=== PATIENT | male | born 1965 | race Caucasian/White ===

== ENCOUNTER 2018-05-11 03:32 | Emergency (ER) | payer OTHER, SELFPAY ==
[~2018-05-11] VITALS: Ht 185.4 cm; Wt 143.3 kg
[~2018-05-11 03:32] MED LIST: ALBU90I INH; ASPI81EC PO; ATOR40TA PO; Amlodipine Besy10 MG PO; BUME1 PO; CEPH500 PO; CLON.1 PO; CLOP75 PO; FLUO20 PO; FURO20 PO; HYDCHL25 PO; HYDMOR2 PO; HYDR10 PO; INSUASPI SC; INSULANI SC; INSULANPEN; LISI10 PO; LISI20 PO; LISI5 PO; METO50 PO; OXYC10ER PO; PARI1 PO; POTCHL10ER PO; PRED10 PO; Prednisone20 MG PO; QUET100 PO; QUET200 PO; SIMV20 PO; SIMV40 PO; SIMV5 PO; TIZANIDINE HCL4 MG PO; ZOLP12.5 PO; [UNRECOGNIZED DRUG - OTHER] PO
[2018-05-11 06:15] LABS: Source, Urine Clean Catch
[2018-05-11 06:21] LABS: Bilirubin, Urine Neg (Neg); Blood, Urine Neg (Neg); Glucose Qualitative, Urine 4+ (Neg); Ketones, Urine Neg (Neg); Leukocyte Esterase, Urine Neg (Neg); Nitrite, Urine Neg (Neg); Protein, Urine 2+ (Neg); Urobilinogen, Urine NORM (Normal)
[2018-05-11 06:28] LABS: BASOPHILS ABSOLUTE AUTO 0.08 K/mm3 (0.00-0.23); BASOPHILS PERCENT AUTO 1 % (0-2); EOSINOPHILS ABSOLUTE AUTO 0.13 K/mm3 (0.00-0.68); EOSINOPHILS PERCENT AUTO 1 % (0-6); Hematocrit 46.9 % (37.0-53.0); Hemoglobin 16.4 g/dL (13.5-17.5); IMMATURE GRAN ABSOLUTE AUTO 0.06 K/mm3 (0.00-0.10); IMMATURE GRAN PERCENT AUTO 1 % (0-1); LYMPHOCYTES ABSOLUTE AUTO 2.23 K/mm3 (0.84-5.20); LYMPHOCYTES PERCENT AUTO 19 % (21-46); MONOCYTES ABSOLUTE AUTO 0.71 K/mm3 (0.16-1.47); MONOCYTES PERCENT AUTO 6 % (4-13); Mean Corpuscular HGB 28.8 pg (26.0-34.0); Mean Corpuscular Volume 82 fL (80-100); Mean Platelet Volume 10.2 fL (9.1-12.4); NEUTROPHILS ABSOLUTE AUTO 8.68 K/mm3 (1.96-9.15); NEUTROPHILS PERCENT AUTO 73 % (41-73); Platelet Count 298 K/mm3 (150-400); RDW Coefficient Variation 12.1 % (11.7-14.2); RDW Standard Deviation 36.4 fL (35.1-46.3); Red Blood Cell Count 5.69 M/mm3 (4.30-5.90); White Blood Cell Count 11.89 K/mm3 (4.00-11.30)
[2018-05-11 06:31] LABS: Appearance, Urine Clear (Clear); Color, Urine Yellow (P-Yellow)
[2018-05-11 06:33] LABS: Bacteria Not Seen /hpf; Red Blood Cells, Urine Not Seen /hpf (0-2); Squamous Epithelial Cells Few /hpf (Few); White Blood Cells, Urine 0-2 /hpf (0-5)
[2018-05-11 06:46] LABS: Alanine Aminotransfer (ALT/SGP 22 U/L (12-78); Albumin, Blood 4.3 g/dL (3.4-5.0); Albumin/Globulin Ratio 1.2 (0.8-1.8); Alk Phos 110 U/L (50-136); Anion Gap 10 mmol/L (6-16); Aspartate Aminotrans (AST/SGOT 15 U/L (12-37); Blood Urea Nitrogen 17 mg/dL (8-24); Bun/Creatinine Ratio 13.2 (12.0-20.0); CO2, Blood 26 mmol/L (21-32); Calcium, Blood 9.2 mg/dL (8.5-10.1); Chloride, Blood 103 mmol/L (98-108); Creatinine, Blood 1.29 mg/dL (0.60-1.20); Globulin, Blood 3.6 g/dL (2.2-4.0); Glomerular Filtration Rate >60 (60-); Glucose, Blood 229 mg/dL (70-99); Potassium, Blood 4.2 mmol/L (3.5-5.5); Sodium, Blood 139 mmol/L (136-145); Total Protein, Blood 7.9 g/dL (6.4-8.2)
== END 2018-05-11 09:30 | disposition home or self-care (01) ==
LOC: ER 03:32
PROVIDERS: Emergency Medicine
DX: R44.1 Visual hallucinations (principal); T50.905A Adverse effect of unspecified drugs, medicaments and biological substances, initial encounter; R10.9 Unspecified abdominal pain
CPT/HCPCS: 70450; 80053; 81001; 85025; 93005; 93010; 96361; 96374; 99284; J2405; J7120

== ENCOUNTER 2018-08-11 16:10 | Emergency (ER) | payer OTHER ==
[~2018-08-11] VITALS: Ht 185.4 cm; Wt 122.5 kg
[2018-08-11] MEDS ORDERED: OXYC10ER PO (16:28)
[2018-08-11] MEDS ORDERED: ONDA8 PO (16:28)
[2018-08-11 18:55] LABS: BASOPHILS ABSOLUTE AUTO 0.04 K/mm3 (0.00-0.23); BASOPHILS PERCENT AUTO 0 % (0-2); EOSINOPHILS ABSOLUTE AUTO 0.01 K/mm3 (0.00-0.68); EOSINOPHILS PERCENT AUTO 0 % (0-6); Hematocrit 46.4 % (37.0-53.0); Hemoglobin 16.2 g/dL (13.5-17.5); IMMATURE GRAN ABSOLUTE AUTO 0.12 K/mm3 (0.00-0.10); IMMATURE GRAN PERCENT AUTO 1 % (0-1); LYMPHOCYTES ABSOLUTE AUTO 1.99 K/mm3 (0.84-5.20); LYMPHOCYTES PERCENT AUTO 18 % (21-46); MONOCYTES ABSOLUTE AUTO 0.91 K/mm3 (0.16-1.47); MONOCYTES PERCENT AUTO 8 % (4-13); Mean Corpuscular HGB Conc 34.9 g/dL (31.5-36.5); Mean Corpuscular Volume 83 fL (80-100); Mean Platelet Volume 10.7 fL (9.1-12.4); NEUTROPHILS ABSOLUTE AUTO 8.24 K/mm3 (1.96-9.15); NEUTROPHILS PERCENT AUTO 73 % (41-73); Platelet Count 351 K/mm3 (150-400); RDW Coefficient Variation 12.8 % (11.7-14.2); RDW Standard Deviation 38.3 fL (35.1-46.3); Red Blood Cell Count 5.59 M/mm3 (4.30-5.90); White Blood Cell Count 11.31 K/mm3 (4.00-11.30)
[2018-08-11 19:17] LABS: Albumin, Blood 4.6 g/dL (3.4-5.0); Albumin/Globulin Ratio 1.2 (0.8-1.8); Bilirubin, Total 0.8 mg/dL (0.1-1.0); Bun/Creatinine Ratio 11.9 (12.0-20.0); Calcium, Blood 9.4 mg/dL (8.5-10.1); Creatinine, Blood 1.43 mg/dL (0.60-1.20); Potassium, Blood 4.3 mmol/L (3.5-5.5); Total Protein, Blood 8.6 g/dL (6.4-8.2)
[2018-08-11 19:54] LABS: Source, Urine Clean Catch
[2018-08-11 20:07] LABS: Bilirubin, Urine Neg (Neg); Blood, Urine 1+ (Neg); Glucose Qualitative, Urine 4+ (Neg); Ketones, Urine 2+ (Neg); Leukocyte Esterase, Urine Neg (Neg); Nitrite, Urine Neg (Neg); Protein, Urine 3+ (Neg); Urobilinogen, Urine NORM (Normal)
[2018-08-11 20:12] LABS: Appearance, Urine Cloudy (Clear); Color, Urine Yellow (P-Yellow)
[2018-08-11 20:14] LABS: Bacteria Few /hpf; White Blood Cells, Urine 0-2 /hpf (0-5)
[2018-08-11 20:16] LABS: Red Blood Cells, Urine 0-2 /hpf (0-2); Squamous Epithelial Cells Few /hpf (Few); Transitional Epithelial Cells Few /hpf (0-Rare)
== END 2018-08-11 21:58 | disposition home or self-care (01) ==
LOC: ER 16:10
PROVIDERS: Emergency Medicine
DX: E11.65 Type 2 diabetes mellitus with hyperglycemia (principal); E86.0 Dehydration; E11.22 Type 2 diabetes mellitus with diabetic chronic kidney disease; N18.9 Chronic kidney disease, unspecified; F32.9 Major depressive disorder, single episode, unspecified; E78.5 Hyperlipidemia, unspecified; E66.01 Morbid (severe) obesity due to excess calories; F17.220 Nicotine dependence, chewing tobacco, uncomplicated; Z79.899 Other long term (current) drug therapy; Z79.4 Long term (current) use of insulin; Z79.01 Long term (current) use of anticoagulants; Z68.35 Body mass index [BMI] 35.0-35.9, adult
CPT/HCPCS: 36415; 74176; 80053; 81001; 82947; 85025; 87086; 96360; 96361; 99284-25; J1815; J7030

== ENCOUNTER 2019-03-09 21:44 | Emergency (ER) | payer OTHER ==
[~2019-03-09] VITALS: Ht 185.4 cm; Wt 137.4 kg
[~2019-03-09 21:44] MED LIST changes: +METO100 PO; +ONDA8 PO
[2019-03-09] MEDS ORDERED: ZOLP12.5 PO (22:23)
[2019-03-09] MEDS ORDERED: ALBU2.5V5 NEB (22:42)
[2019-03-09] MEDS ORDERED: BENZ100A PO (22:43)
== END 2019-03-09 23:33 | disposition home or self-care (01) ==
LOC: ER 21:44
DX: R06.00 Dyspnea, unspecified (principal); I10 Essential (primary) hypertension; E11.40 Type 2 diabetes mellitus with diabetic neuropathy, unspecified; F17.220 Nicotine dependence, chewing tobacco, uncomplicated; Z79.4 Long term (current) use of insulin; Z79.899 Other long term (current) drug therapy
CPT/HCPCS: 71046; 94640; 99283-25

== ENCOUNTER → 2020-03-15 | Outpatient (CLI) | payer OTHER ==
[~2020-03-15] MED LIST changes: +ALBU2.5V5 NEB; +BENZ100A PO
[2020-03-15 18:53] LABS: Protein, Urine Quantitative 21.4 mg/dL (0.0-11.9)
[2020-03-15 18:59] LABS: Creatinine Urine 30.8 mg/dL (27.00-270.00)
== END | disposition home or self-care (01) ==
LOC: LAB 16:35 → LAB SHORT 16:35 → LAB FUT 03-14 14:05
PROVIDERS: Internal Medicine Nephrology
DX: N18.3 Chronic kidney disease, stage 3 (moderate) (principal); D63.1 Anemia in chronic kidney disease; N40.1 Benign prostatic hyperplasia with lower urinary tract symptoms; R80.9 Proteinuria, unspecified
CPT/HCPCS: 81050; 82043; 82570; 84156

== ENCOUNTER 2020-05-12 10:31 | Emergency (ER) | payer OTHER ==
[~2020-05-12] VITALS: Ht 185.4 cm; Wt 127.0 kg
[2020-05-12] MEDS ORDERED: TOBRADEX ST EYE5 M1 LEFTEYE (13:13)
== END 2020-05-12 14:13 | disposition home or self-care (01) ==
LOC: ER 10:31
DX: H10.9 Unspecified conjunctivitis (principal); Z88.8 Allergy status to other drugs, medicaments and biological substances; Z79.899 Other long term (current) drug therapy; Z79.4 Long term (current) use of insulin; E11.40 Type 2 diabetes mellitus with diabetic neuropathy, unspecified; E78.00 Pure hypercholesterolemia, unspecified; I10 Essential (primary) hypertension; I25.2 Old myocardial infarction; F17.220 Nicotine dependence, chewing tobacco, uncomplicated
CPT/HCPCS: 70450; 99283-25

== ENCOUNTER 2020-12-23 17:35 | Observation (INO) | payer OTHER ==
[~2020-12-23] VITALS: Ht 185.4 cm; Wt 128.4 kg
[~2020-12-23 17:35] MED LIST changes: -INSUASPI SC; +NOVOLOG FL100 UNIT/3; +TOBRADEX ST EYE5 M1 LEFTEYE
[2020-12-23 18:47] LABS: BASOPHILS ABSOLUTE AUTO 0.07 K/mm3 (0.00-0.23); BASOPHILS PERCENT AUTO 1 % (0-2); EOSINOPHILS ABSOLUTE AUTO 0.13 K/mm3 (0.00-0.68); EOSINOPHILS PERCENT AUTO 1 % (0-6); Hematocrit 39.9 % (37.0-53.0); Hemoglobin 13.4 g/dL (13.5-17.5); IMMATURE GRAN ABSOLUTE AUTO 0.08 K/mm3 (0.00-0.10); IMMATURE GRAN PERCENT AUTO 1 % (0-1); LYMPHOCYTES PERCENT AUTO 17 % (21-46); MONOCYTES ABSOLUTE AUTO 1.07 K/mm3 (0.16-1.47); MONOCYTES PERCENT AUTO 11 % (4-13); Mean Corpuscular HGB 28.6 pg (26.0-34.0); Mean Corpuscular HGB Conc 33.6 g/dL (31.5-36.5); Mean Corpuscular Volume 85 fL (80-100); Mean Platelet Volume 10.9 fL (9.1-12.4); NEUTROPHILS ABSOLUTE AUTO 6.74 K/mm3 (1.96-9.15); NEUTROPHILS PERCENT AUTO 69 % (41-73); Platelet Count 242 K/mm3 (150-400); RDW Coefficient Variation 12.4 % (11.7-14.2); RDW Standard Deviation 38.2 fL (35.1-46.3); Red Blood Cell Count 4.68 M/mm3 (4.30-5.90); White Blood Cell Count 9.79 K/mm3 (4.00-11.30)
[2020-12-23 19:08] LABS: Alanine Aminotransfer (ALT/SGP 32 U/L (12-78); Albumin, Blood 3.3 g/dL (3.4-5.0); Albumin/Globulin Ratio 1.1 (0.8-1.8); Alk Phos 167 U/L (50-136); Anion Gap 6 mmol/L (6-16); Aspartate Aminotrans (AST/SGOT 19 U/L (12-37); Bilirubin, Total 0.6 mg/dL (0.1-1.0); Blood Urea Nitrogen 31 mg/dL (8-24); Bun/Creatinine Ratio 22.8 (12.0-20.0); CO2, Blood 26 mmol/L (21-32); Calcium, Blood 8.4 mg/dL (8.5-10.1); Chloride, Blood 104 mmol/L (98-108); Creatinine, Blood 1.36 mg/dL (0.60-1.20); Globulin, Blood 3.1 g/dL (2.2-4.0); Glomerular Filtration Rate 58 (60-); Glucose, Blood 295 mg/dL (70-99); Potassium, Blood 4.3 mmol/L (3.5-5.5); Sodium, Blood 136 mmol/L (136-145); Total Protein, Blood 6.4 g/dL (6.4-8.2); Troponin I <0.015 ng/mL (0.000-0.040)
[2020-12-23] MEDS ORDERED: HYDMOR4 PO (19:51)
[2020-12-23] MEDS ORDERED: QUETIAPINE FUMA50 M4 PO (19:52)
[2020-12-23] MEDS ORDERED: ATOR40TA PO (19:52)
[2020-12-23] MEDS ORDERED: CLON.1 PO (19:53)
[2020-12-23] MEDS ORDERED: LISI20 PO (19:53)
[2020-12-23] MEDS ORDERED: METO100ER PO (19:54)
[2020-12-24 06:24] LABS: BASOPHILS ABSOLUTE AUTO 0.07 K/mm3 (0.00-0.23); BASOPHILS PERCENT AUTO 1 % (0-2); EOSINOPHILS ABSOLUTE AUTO 0.21 K/mm3 (0.00-0.68); EOSINOPHILS PERCENT AUTO 3 % (0-6); Hematocrit 37.3 % (37.0-53.0); Hemoglobin 12.5 g/dL (13.5-17.5); IMMATURE GRAN ABSOLUTE AUTO 0.05 K/mm3 (0.00-0.10); IMMATURE GRAN PERCENT AUTO 1 % (0-1); LYMPHOCYTES ABSOLUTE AUTO 3.22 K/mm3 (0.84-5.20); LYMPHOCYTES PERCENT AUTO 42 % (21-46); MONOCYTES ABSOLUTE AUTO 0.91 K/mm3 (0.16-1.47); MONOCYTES PERCENT AUTO 12 % (4-13); Mean Corpuscular HGB 28.7 pg (26.0-34.0); Mean Corpuscular HGB Conc 33.5 g/dL (31.5-36.5); Mean Corpuscular Volume 86 fL (80-100); Mean Platelet Volume 11.2 fL (9.1-12.4); NEUTROPHILS ABSOLUTE AUTO 3.27 K/mm3 (1.96-9.15); NEUTROPHILS PERCENT AUTO 42 % (41-73); Platelet Count 200 K/mm3 (150-400); RDW Coefficient Variation 12.2 % (11.7-14.2); RDW Standard Deviation 38.4 fL (35.1-46.3); Red Blood Cell Count 4.36 M/mm3 (4.30-5.90); White Blood Cell Count 7.73 K/mm3 (4.00-11.30)
[2020-12-24 06:51] LABS: Anion Gap 5 mmol/L (6-16); Blood Urea Nitrogen 26 mg/dL (8-24); Bun/Creatinine Ratio 22.6 (12.0-20.0); CO2, Blood 26 mmol/L (21-32); Calcium, Blood 8.2 mg/dL (8.5-10.1); Chloride, Blood 109 mmol/L (98-108); Creatinine, Blood 1.15 mg/dL (0.60-1.20); Glomerular Filtration Rate >60 (60-); Glucose, Blood 274 mg/dL (70-99); Potassium, Blood 3.9 mmol/L (3.5-5.5); Sodium, Blood 140 mmol/L (136-145); Troponin I <0.015 ng/mL (0.000-0.040)
--- NOTE | 2020-12-24 07:36 | NUR ---
12/24/20 0500 PT SLEEPING ON AND OFF LAST NIGHT. MEDICATED FOR SLEEP AND CHRONIC "FEET" AND "LEFT SIDE OF BODY" PAIN EARLIER. VITALS STABLE THIS AM. DENIES ANY CHEST DISCOMFORT OR NAUSEA THIS SHIFT. VOIDING QS. PT REFUSED COVID TEST IN ER AND ON FLOOR. WILL PASS ON TO THE DAY SHIFT.
[2020-12-24] MEDS ORDERED: Aspir 8181 MG PO (09:49)
[2020-12-24] MEDS ORDERED: NICO2 PO (09:50)
[2020-12-24] MEDS ORDERED: NITR.4SL SL (09:51)
[2020-12-24] MEDS ORDERED: FAMO20 PO (09:51)
[2020-12-24] MEDS ORDERED: HYDCHL25 PO (09:52)
--- NOTE | 2020-12-24 09:57 | NUR ---
PATIENT REFUSED TO HAVE CHEM BG CHECKED, THUS INSULIN HELD. DR GREGORIO NOTIFIED. DR GREGORIO IS DISCHARGING PATIENT HOME AND PATIENT TO FOLLOW-UP WITH RN DISEASE MANAGEMENT ON OUTPATIENT BASIS. IV REMOVED AND TELE BOX REMOVED; RETURNED TO PCU MEDICAL LABORATORY TECHNOLOGIST.
--- NOTE | 2020-12-24 10:40 | NUR ---
DISCHARGE INSTRUCTIONS REVIEWED WITH PATIENT. ALL QUESTIONS ANSWERED. FOLLOW UP APPOINTMENTS SCHEDULED WITH PCP AND PRIVATE BRANCH EXCHANGE OPERATOR.
--- NOTE | 2020-12-24 12:14 | NUR ---
PATIENT WAS ESCORTED OUT BY BEHAVIORAL PSYCHOLOGIST IN WHEEL CHAIR AT 1200. FAMILY MEMBER PICKED UP PATIENT AT [facility].
== END 2020-12-24 12:02 | disposition home or self-care (01) ==
LOC: ER 17:35 → MEDS 20:15
PROVIDERS: Emergency Medicine; Nurse Practitioner Acute Care; ADMIT Internal Medicine
DX: I20.9 Angina pectoris, unspecified (principal); R11.2 Nausea with vomiting, unspecified; K29.70 Gastritis, unspecified, without bleeding; E78.5 Hyperlipidemia, unspecified; I25.10 Atherosclerotic heart disease of native coronary artery without angina pectoris; N17.9 Acute kidney failure, unspecified; I12.9 Hypertensive chronic kidney disease with stage 1 through stage 4 chronic kidney disease, or unspecified chronic kidney disease; E11.22 Type 2 diabetes mellitus with diabetic chronic kidney disease; N18.30 Chronic kidney disease, stage 3 unspecified; E11.65 Type 2 diabetes mellitus with hyperglycemia; G89.4 Chronic pain syndrome; J44.9 Chronic obstructive pulmonary disease, unspecified; I25.2 Old myocardial infarction; F17.220 Nicotine dependence, chewing tobacco, uncomplicated; Z86.73 Personal history of transient ischemic attack (TIA), and cerebral infarction without residual deficits; Z85.47 Personal history of malignant neoplasm of testis; Z79.02 Long term (current) use of antithrombotics/antiplatelets; Z79.4 Long term (current) use of insulin; Z79.899 Other long term (current) drug therapy
CPT/HCPCS: 36415; 71046; 80048; 80053; 83690; 84484; 85025; 93005; 93010; 96374; 96375; 96376; 99285-25; A9270; G0378; J2405; J7030

== ENCOUNTER → 2022-01-13 | Outpatient (CLI) | payer OTHER ==
[~2022-01-13] MED LIST changes: +Aspir 8181 MG PO; +FAMO20 PO; +HYDMOR4 PO; +METO100ER PO; +NICO2 PO; +NITR.4SL SL; +QUETIAPINE FUMA50 M4 PO
[2022-01-13 13:38] LABS: BASOPHILS ABSOLUTE AUTO 0.04 K/mm3 (0.00-0.23); BASOPHILS PERCENT AUTO 0 % (0-2); EOSINOPHILS ABSOLUTE AUTO 0.03 K/mm3 (0.00-0.68); EOSINOPHILS PERCENT AUTO 0 % (0-6); Hematocrit 44.3 % (37.0-53.0); Hemoglobin 15.1 g/dL (13.5-17.5); IMMATURE GRAN ABSOLUTE AUTO 0.08 K/mm3 (0.00-0.10); IMMATURE GRAN PERCENT AUTO 1 % (0-1); LYMPHOCYTES ABSOLUTE AUTO 1.35 K/mm3 (0.84-5.20); LYMPHOCYTES PERCENT AUTO 14 % (21-46); MONOCYTES PERCENT AUTO 14 % (4-13); Mean Corpuscular HGB 28.4 pg (26.0-34.0); Mean Corpuscular HGB Conc 34.1 g/dL (31.5-36.5); Mean Corpuscular Volume 83 fL (80-100); Mean Platelet Volume 11.9 fL (9.1-12.4); NEUTROPHILS ABSOLUTE AUTO 6.92 K/mm3 (1.96-9.15); NEUTROPHILS PERCENT AUTO 71 % (41-73); Platelet Count 289 K/mm3 (150-400); RDW Coefficient Variation 13.2 % (11.7-14.2); Red Blood Cell Count 5.31 M/mm3 (4.30-5.90); White Blood Cell Count 9.82 K/mm3 (4.00-11.30)
[2022-01-13 14:05] LABS: Creatinine, Blood 1.33 mg/dL (0.60-1.20); Potassium, Blood 4.1 mmol/L (3.5-5.5)
== END ==
LOC: LAB SHORT 13:34 → LAB 13:34
PROVIDERS: Family Medicine
DX: U07.1 COVID-19 (principal); J12.82 Pneumonia due to coronavirus disease 2019
CPT/HCPCS: 80048; 85025

== ENCOUNTER → 2022-05-09 | Outpatient (CLI) | payer OTHER | END | disposition home or self-care (01) | LOC: LAB SHORT 17:27 → LAB 17:27 | DX: E11.621 Type 2 diabetes mellitus with foot ulcer (principal) | CPT/HCPCS: 87070; 87205 ==

== ENCOUNTER → 2022-07-15 | Outpatient (CLI) | payer OTHER ==
[2022-07-15 12:30] LABS: Protein, Urine Quantitative 62.1 mg/dL (0.0-11.9)
== END | disposition home or self-care (01) ==
LOC: LAB SHORT 08:00 → LAB 08:00
PROVIDERS: Internal Medicine Nephrology
DX: N18.30 Chronic kidney disease, stage 3 unspecified (principal); D63.1 Anemia in chronic kidney disease; R73.09 Other abnormal glucose; N40.1 Benign prostatic hyperplasia with lower urinary tract symptoms; E29.1 Testicular hypofunction; N25.81 Secondary hyperparathyroidism of renal origin; R76.9 Abnormal immunological finding in serum, unspecified; R94.6 Abnormal results of thyroid function studies
CPT/HCPCS: 81050; 82043; 82570; 84156

== ENCOUNTER 2022-11-24 16:18 | Emergency (ER) | payer OTHER ==
[~2022-11-24] VITALS: Ht 185.4 cm; Wt 129.3 kg
[2022-11-24 17:42] LABS: BASOPHILS PERCENT AUTO 1 % (0-2); EOSINOPHILS ABSOLUTE AUTO 0.22 K/mm3 (0.00-0.68); EOSINOPHILS PERCENT AUTO 2 % (0-6); Hematocrit 47.5 % (37.0-53.0); Hemoglobin 16.4 g/dL (13.5-17.5); IMMATURE GRAN PERCENT AUTO 1 % (0-1); LYMPHOCYTES ABSOLUTE AUTO 3.06 K/mm3 (0.84-5.20); LYMPHOCYTES PERCENT AUTO 30 % (21-46); MONOCYTES ABSOLUTE AUTO 0.88 K/mm3 (0.16-1.47); MONOCYTES PERCENT AUTO 9 % (4-13); Mean Corpuscular HGB 29.2 pg (26.0-34.0); Mean Corpuscular HGB Conc 34.5 g/dL (31.5-36.5); Mean Corpuscular Volume 85 fL (80-100); Mean Platelet Volume 11.6 fL (9.1-12.4); NEUTROPHILS ABSOLUTE AUTO 5.77 K/mm3 (1.96-9.15); NEUTROPHILS PERCENT AUTO 57 % (41-73); Platelet Count 343 K/mm3 (150-400); RDW Coefficient Variation 12.3 % (11.7-14.2); RDW Standard Deviation 37.7 fL (35.1-46.3); Red Blood Cell Count 5.62 M/mm3 (4.30-5.90); White Blood Cell Count 10.13 K/mm3 (4.00-11.30)
[2022-11-24 18:03] LABS: Albumin, Blood 3.5 g/dL (3.4-5.0); Albumin/Globulin Ratio 0.9 (0.8-1.8); Bilirubin, Total 0.6 mg/dL (0.1-1.0); Bun/Creatinine Ratio 26.3 (12.0-20.0); Calcium, Blood 9.2 mg/dL (8.5-10.1); Creatinine, Blood 1.37 mg/dL (0.60-1.20); Globulin, Blood 4.1 g/dL (2.2-4.0); Potassium, Blood 3.9 mmol/L (3.5-5.5); Total Protein, Blood 7.6 g/dL (6.4-8.2)
[2022-11-25] MEDS ORDERED: ASPI81CH PO (00:11)
== END 2022-11-25 00:25 | disposition home or self-care (01) ==
LOC: ER 16:18
PROVIDERS: Physician Assistant
DX: G45.9 Transient cerebral ischemic attack, unspecified (principal); E11.40 Type 2 diabetes mellitus with diabetic neuropathy, unspecified; I10 Essential (primary) hypertension; F17.220 Nicotine dependence, chewing tobacco, uncomplicated; Z88.8 Allergy status to other drugs, medicaments and biological substances; Z79.899 Other long term (current) drug therapy; Z79.82 Long term (current) use of aspirin; Z79.4 Long term (current) use of insulin
CPT/HCPCS: 36415; 70450; 70496; 70498; 80053; 85025; 93005; 93010; A9270; Q9967

== ENCOUNTER 2022-12-03 15:54 | Emergency (ER) | payer OTHER ==
[~2022-12-03] VITALS: Ht 185.4 cm; Wt 124.7 kg
[~2022-12-03 15:54] MED LIST changes: +ASPI81CH PO
[2022-12-03 16:58] LABS: BASOPHILS PERCENT AUTO 1 % (0-2); EOSINOPHILS ABSOLUTE AUTO 0.25 K/mm3 (0.00-0.68); EOSINOPHILS PERCENT AUTO 3 % (0-6); Hemoglobin 14.5 g/dL (13.5-17.5); IMMATURE GRAN ABSOLUTE AUTO 0.03 K/mm3 (0.00-0.10); IMMATURE GRAN PERCENT AUTO 0 % (0-1); LYMPHOCYTES ABSOLUTE AUTO 3.98 K/mm3 (0.84-5.20); LYMPHOCYTES PERCENT AUTO 42 % (21-46); MONOCYTES PERCENT AUTO 7 % (4-13); Mean Corpuscular HGB 29.1 pg (26.0-34.0); Mean Corpuscular HGB Conc 34.5 g/dL (31.5-36.5); Mean Corpuscular Volume 84 fL (80-100); Mean Platelet Volume 11.9 fL (9.1-12.4); NEUTROPHILS ABSOLUTE AUTO 4.34 K/mm3 (1.96-9.15); NEUTROPHILS PERCENT AUTO 46 % (41-73); Platelet Count 301 K/mm3 (150-400); RDW Coefficient Variation 12.2 % (11.7-14.2); RDW Standard Deviation 36.9 fL (35.1-46.3); Red Blood Cell Count 4.98 M/mm3 (4.30-5.90)
[2022-12-03 17:21] LABS: Albumin, Blood 3.1 g/dL (3.4-5.0); Albumin/Globulin Ratio 0.9 (0.8-1.8); Bilirubin, Total 0.5 mg/dL (0.1-1.0); Bun/Creatinine Ratio 16.5 (12.0-20.0); Calcium, Blood 8.7 mg/dL (8.5-10.1); Creatinine, Blood 1.39 mg/dL (0.60-1.20); Globulin, Blood 3.3 g/dL (2.2-4.0); Potassium, Blood 4.2 mmol/L (3.5-5.5); Total Protein, Blood 6.4 g/dL (6.4-8.2)
== END 2022-12-03 21:50 | disposition home or self-care (01) ==
LOC: ER 15:54
PROVIDERS: Physician Assistant
DX: I63.9 Cerebral infarction, unspecified (principal); R47.81 Slurred speech; I12.9 Hypertensive chronic kidney disease with stage 1 through stage 4 chronic kidney disease, or unspecified chronic kidney disease; E11.22 Type 2 diabetes mellitus with diabetic chronic kidney disease; N18.9 Chronic kidney disease, unspecified; E11.40 Type 2 diabetes mellitus with diabetic neuropathy, unspecified; Z88.8 Allergy status to other drugs, medicaments and biological substances; Z79.899 Other long term (current) drug therapy; Z79.4 Long term (current) use of insulin; Z79.82 Long term (current) use of aspirin
CPT/HCPCS: 36415; 80053; 85025; 93005; 93010; 93880; 99284-25

== ENCOUNTER → 2023-03-05 | Outpatient (CLI) | payer OTHER ==
[2023-03-05 16:51] LABS: Source, Urine Clean Catch
[2023-03-05 17:50] LABS: Appearance, Urine Clear (Clear); Bilirubin, Urine Neg (Neg); Blood, Urine 1+ (Neg); Color, Urine Yellow (P-Yellow); Glucose Qualitative, Urine 4+ (Neg); Ketones, Urine Neg (Neg); Leukocyte Esterase, Urine Neg (Neg); Nitrite, Urine Neg (Neg); Protein, Urine 3+ (Neg); Urobilinogen, Urine NORM (Normal); pH, Urine 6.5 (5.0-8.0)
[2023-03-05 18:00] LABS: Bacteria Rare /hpf; Red Blood Cells, Urine 0-2 /hpf (0-2); Squamous Epithelial Cells Rare /hpf (Few); White Blood Cells, Urine 0-2 /hpf (0-5)
== END | disposition home or self-care (01) ==
LOC: LAB 16:50 → LAB SHORT 16:50
PROVIDERS: Internal Medicine Nephrology
DX: E11.21 Type 2 diabetes mellitus with diabetic nephropathy (principal); N39.0 Urinary tract infection, site not specified; R73.9 Hyperglycemia, unspecified
CPT/HCPCS: 81001

== ENCOUNTER 2023-08-31 10:56 | Day surgery (SDC) | payer OTHER ==
[~2023-08-31] VITALS: Ht 185.4 cm; Wt 132.0 kg
[~2023-08-31 10:56] MED LIST changes: +ALBU90OI INH; +AMLO10 PO; +CATAPRES0.2 M1 PO; +Crestor40 MG PO; +FURO40 PO; +HYDRA50 PO; +INSULANPEN SC; +METO5A PO; +NIFE60ER PO; +NIFE90ER PO; +POTA8 PO; +ROPI.25 PO; +TIZA4 PO
[2023-08-31 14:35] VITALS: BP 143/82
[2023-08-31 14:45] VITALS: BP 143/82
[2023-08-31 15:00] VITALS: BP 147/80
[2023-08-31 15:15] VITALS: BP 151/83
[2023-08-31 16:00] VITALS: BP 163/89
[2023-08-31 16:30] VITALS: BP 168/92
--- NOTE | 2023-08-31 16:57 | NUR ---
PT VERBALIZES UNDERSTANDING WRITTEN AND VERBAL INSTRUCTIONS. DENIES QUESTIONS. PT D/C/I TO R FEMORAL SITE. VSS. NADN. PT DRESSES SELF WITHOUT DIFF. PT AMBULATES TO AND FROM RESTROOM WITHOUT DIFF. PT IV DC'D. CATH INTACT. PRESSURE DSG APPLIED. PT DC TO HOME VIA BY W/C
== END 2023-08-31 22:45 | disposition home or self-care (01) ==
LOC: MHTC 10:56
DX: I70.1 Atherosclerosis of renal artery (principal); I15.0 Renovascular hypertension; E03.9 Hypothyroidism, unspecified; E11.22 Type 2 diabetes mellitus with diabetic chronic kidney disease; I12.9 Hypertensive chronic kidney disease with stage 1 through stage 4 chronic kidney disease, or unspecified chronic kidney disease; N18.9 Chronic kidney disease, unspecified; E05.90 Thyrotoxicosis, unspecified without thyrotoxic crisis or storm; G25.81 Restless legs syndrome; E55.9 Vitamin D deficiency, unspecified
CPT/HCPCS: 76937; 99152; 99153; A9270; C1760; C1769; C1876; C1887; C1894; J1644; J2250; J3010; J7030; J7050; Q9967

== ENCOUNTER 2024-04-30 21:34 | Emergency (ER) | payer OTHER ==
[~2024-04-30] VITALS: Ht 185.4 cm; Wt 108.9 kg
[~2024-04-30 21:34] MED LIST changes: +Amitriptyline H10 MG PO; +BUMETANIDE2 M1 PO; +LIPITOR80 MG PO; -NOVOLOG FL100 UNIT/3; +NOVOLOG FL100 UNIT/3 SC; +POTA10T PO; +PREG25 PO
[2024-04-30 22:01] LABS: BASOPHILS ABSOLUTE AUTO 0.09 K/mm3 (0.00-0.23); BASOPHILS PERCENT AUTO 1 % (0-2); EOSINOPHILS ABSOLUTE AUTO 0.17 K/mm3 (0.00-0.68); EOSINOPHILS PERCENT AUTO 2 % (0-6); Hematocrit 37.4 % (37.0-53.0); Hemoglobin 12.6 g/dL (13.5-17.5); IMMATURE GRAN ABSOLUTE AUTO 0.08 K/mm3 (0.00-0.10); IMMATURE GRAN PERCENT AUTO 1 % (0-1); LYMPHOCYTES ABSOLUTE AUTO 3.29 K/mm3 (0.84-5.20); LYMPHOCYTES PERCENT AUTO 33 % (21-46); MONOCYTES ABSOLUTE AUTO 0.92 K/mm3 (0.16-1.47); MONOCYTES PERCENT AUTO 9 % (4-13); Mean Corpuscular HGB Conc 33.7 g/dL (31.5-36.5); Mean Corpuscular Volume 86 fL (80-100); Mean Platelet Volume 11.9 fL (9.1-12.4); NEUTROPHILS ABSOLUTE AUTO 5.51 K/mm3 (1.96-9.15); NEUTROPHILS PERCENT AUTO 55 % (41-73); Platelet Count 324 K/mm3 (150-400); RDW Coefficient Variation 12.7 % (11.7-14.2); RDW Standard Deviation 39.5 fL (35.1-46.3); Red Blood Cell Count 4.34 M/mm3 (4.30-5.90); White Blood Cell Count 10.06 K/mm3 (4.00-11.30)
[2024-04-30 22:20] LABS: Albumin, Blood 2.8 g/dL (3.4-5.0); Albumin/Globulin Ratio 0.8 (0.8-1.8); Bilirubin, Total 0.6 mg/dL (0.1-1.0); Bun/Creatinine Ratio 13.6 (12.0-20.0); Calcium, Blood 8.8 mg/dL (8.5-10.1); Creatinine, Blood 2.13 mg/dL (0.60-1.20); Globulin, Blood 3.3 g/dL (2.2-4.0); Potassium, Blood 4.1 mmol/L (3.5-5.5); Total Protein, Blood 6.1 g/dL (6.4-8.2)
[2024-05-01] MEDS ORDERED: Ondansetron HCl 2 MG / ML 2ML Vial IV ONE (00:20)
[2024-05-01] MEDS ORDERED: NS 1,000 ML IV SCH (00:20)
[2024-05-01 00:30] VITALS: BP 142/79
[2024-05-01] MEDS ORDERED: ALPRAZolam 0.5 MG Tab PO ONE (00:35)
[2024-05-01] MEDS ORDERED: Sennosides 8.6 MG Tab PO ONE (01:50)
[2024-05-01] MEDS ORDERED: Lactulose 20 GM/30 ML UDC PO ONE (01:55)
[2024-05-01] MEDS ORDERED: SENNA LAXATIVE8.6 MG PO (02:06)
[2024-05-01] MEDS ORDERED: METO10 PO (02:06)
[2024-05-01] MEDS ORDERED: CONSTULOSE10 GM/155 PO (02:06)
[2024-05-01] MEDS ORDERED: ONDA4ODT MM (02:19)
[2024-05-03] MEDS ORDERED: PROMETHAZINE12.5 M1 PO (14:20)
[2024-05-03] MEDS ORDERED: PROM12.5S PR (14:24)
== END 2024-05-01 02:28 | disposition home or self-care (01) ==
LOC: ER 21:34
PROVIDERS: Student in an Organized Health Care Education/Training Program
DX: K59.00 Constipation, unspecified (principal); R10.9 Unspecified abdominal pain; Z88.8 Allergy status to other drugs, medicaments and biological substances; Z79.899 Other long term (current) drug therapy; Z79.4 Long term (current) use of insulin; E11.40 Type 2 diabetes mellitus with diabetic neuropathy, unspecified; E78.00 Pure hypercholesterolemia, unspecified; I10 Essential (primary) hypertension; I25.2 Old myocardial infarction; Z87.891 Personal history of nicotine dependence
CPT/HCPCS: 74177; 80053; 85025; 93005; 93010; 96360-59; 96361; 99284-25; A9270; J2405; J7030; Q9967

== ENCOUNTER 2024-05-10 11:30 | Emergency (ER) | payer OTHER ==
[~2024-05-10] VITALS: Ht 185.4 cm; Wt 111.1 kg
[~2024-05-10 11:30] MED LIST changes: +CONSTULOSE10 GM/155 PO; +METO10 PO; +ONDA4ODT MM; +PROM12.5S PR; +PROMETHAZINE12.5 M1 PO; +SENNA LAXATIVE8.6 MG PO
[2024-05-10 11:33] VITALS: BP 150/92
[2024-05-10 12:02] LABS: BASOPHILS ABSOLUTE AUTO 0.11 K/mm3 (0.00-0.23); BASOPHILS PERCENT AUTO 1 % (0-2); EOSINOPHILS ABSOLUTE AUTO 0.25 K/mm3 (0.00-0.68); EOSINOPHILS PERCENT AUTO 3 % (0-6); Hematocrit 40.7 % (37.0-53.0); Hemoglobin 13.6 g/dL (13.5-17.5); IMMATURE GRAN ABSOLUTE AUTO 0.07 K/mm3 (0.00-0.10); IMMATURE GRAN PERCENT AUTO 1 % (0-1); LYMPHOCYTES ABSOLUTE AUTO 3.95 K/mm3 (0.84-5.20); LYMPHOCYTES PERCENT AUTO 39 % (21-46); MONOCYTES ABSOLUTE AUTO 0.86 K/mm3 (0.16-1.47); MONOCYTES PERCENT AUTO 9 % (4-13); Mean Corpuscular HGB 28.9 pg (26.0-34.0); Mean Corpuscular HGB Conc 33.4 g/dL (31.5-36.5); Mean Corpuscular Volume 86 fL (80-100); Mean Platelet Volume 11.9 fL (9.1-12.4); NEUTROPHILS ABSOLUTE AUTO 4.86 K/mm3 (1.96-9.15); NEUTROPHILS PERCENT AUTO 48 % (41-73); Platelet Count 320 K/mm3 (150-400); RDW Coefficient Variation 12.8 % (11.7-14.2); RDW Standard Deviation 40.1 fL (35.1-46.3); Red Blood Cell Count 4.71 M/mm3 (4.30-5.90)
[2024-05-10 12:34] LABS: Albumin, Blood 3.1 g/dL (3.4-5.0); Albumin/Globulin Ratio 0.8 (0.8-1.8); Bilirubin, Total 0.6 mg/dL (0.1-1.0); Calcium, Blood 9.1 mg/dL (8.5-10.1); Creatinine, Blood 2.3 mg/dL (0.60-1.20); Globulin, Blood 3.9 g/dL (2.2-4.0); Potassium, Blood 4.1 mmol/L (3.5-5.5)
== END 2024-05-10 15:21 ==
LOC: ER 11:30
PROVIDERS: Emergency Medicine
DX: Z53.21 Procedure and treatment not carried out due to patient leaving prior to being seen by health care provider (principal)
CPT/HCPCS: 71046; 80053; 83880; 84484; 85025; 93005; 93010

== ENCOUNTER 2024-06-19 15:46 | Emergency (ER) | payer OTHER ==
[~2024-06-19] VITALS: Ht 185.4 cm; Wt 113.4 kg
[2024-06-19] MEDS ORDERED: NS 500 ML IV ONE (16:05)
[2024-06-19 16:39] LABS: BASOPHILS ABSOLUTE AUTO 0.12 K/mm3 (0.00-0.23); BASOPHILS PERCENT AUTO 1 % (0-2); EOSINOPHILS ABSOLUTE AUTO 0.38 K/mm3 (0.00-0.68); EOSINOPHILS PERCENT AUTO 4 % (0-6); Hematocrit 35.7 % (37.0-53.0); Hemoglobin 11.7 g/dL (13.5-17.5); IMMATURE GRAN ABSOLUTE AUTO 0.07 K/mm3 (0.00-0.10); IMMATURE GRAN PERCENT AUTO 1 % (0-1); LYMPHOCYTES ABSOLUTE AUTO 3.62 K/mm3 (0.84-5.20); LYMPHOCYTES PERCENT AUTO 34 % (21-46); MONOCYTES ABSOLUTE AUTO 1.03 K/mm3 (0.16-1.47); MONOCYTES PERCENT AUTO 10 % (4-13); Mean Corpuscular HGB 29.5 pg (26.0-34.0); Mean Corpuscular HGB Conc 32.8 g/dL (31.5-36.5); Mean Corpuscular Volume 90 fL (80-100); Mean Platelet Volume 11.7 fL (9.1-12.4); NEUTROPHILS ABSOLUTE AUTO 5.52 K/mm3 (1.96-9.15); NEUTROPHILS PERCENT AUTO 51 % (41-73); Platelet Count 229 K/mm3 (150-400); RDW Coefficient Variation 12.7 % (11.7-14.2); RDW Standard Deviation 41.7 fL (35.1-46.3); Red Blood Cell Count 3.97 M/mm3 (4.30-5.90); White Blood Cell Count 10.74 K/mm3 (4.00-11.30)
[2024-06-19 17:03] LABS: Albumin, Blood 2.7 g/dL (3.4-5.0); Albumin/Globulin Ratio 0.8 (0.8-1.8); Bilirubin, Total 0.3 mg/dL (0.1-1.0); Calcium, Blood 8.3 mg/dL (8.5-10.1); Creatinine, Blood 2.23 mg/dL (0.60-1.20); Globulin, Blood 3.3 g/dL (2.2-4.0); Potassium, Blood 4.6 mmol/L (3.5-5.5)
[2024-06-19 17:34] VITALS: BP 110/65
== END 2024-06-19 17:35 | disposition home or self-care (01) ==
LOC: ER 15:46
PROVIDERS: Physician Assistant
DX: I95.9 Hypotension, unspecified (principal); I10 Essential (primary) hypertension; I25.2 Old myocardial infarction; E11.40 Type 2 diabetes mellitus with diabetic neuropathy, unspecified; E78.00 Pure hypercholesterolemia, unspecified; Z79.4 Long term (current) use of insulin; Z79.82 Long term (current) use of aspirin; Z79.899 Other long term (current) drug therapy; Z88.8 Allergy status to other drugs, medicaments and biological substances; Z87.891 Personal history of nicotine dependence
CPT/HCPCS: 80053; 85025; J7030

== ENCOUNTER 2024-07-14 12:48 | Emergency (ER) | payer OTHER ==
[~2024-07-14] VITALS: Ht 185.4 cm; Wt 97.5 kg
[2024-07-14] MEDS ORDERED: NS 1,000 ML IV SCH (13:50)
[2024-07-14 13:52] LABS: Albumin, Blood 2.6 g/dL (3.4-5.0); Albumin/Globulin Ratio 0.8 (0.8-1.8); Bilirubin, Total 0.4 mg/dL (0.1-1.0); Bun/Creatinine Ratio 15.7 (12.0-20.0); Calcium, Blood 8.2 mg/dL (8.5-10.1); Creatinine, Blood 2.48 mg/dL (0.60-1.20); Globulin, Blood 3.4 g/dL (2.2-4.0); Potassium, Blood 4.6 mmol/L (3.5-5.5)
[2024-07-14 14:13] LABS: BASOPHILS ABSOLUTE AUTO 0.16 K/mm3 (0.00-0.23); BASOPHILS PERCENT AUTO 1 % (0-2); EOSINOPHILS PERCENT AUTO 3 % (0-6); Hematocrit 35.4 % (37.0-53.0); Hemoglobin 11.7 g/dL (13.5-17.5); IMMATURE GRAN ABSOLUTE AUTO 0.05 K/mm3 (0.00-0.10); IMMATURE GRAN PERCENT AUTO 0 % (0-1); LYMPHOCYTES ABSOLUTE AUTO 3.15 K/mm3 (0.84-5.20); LYMPHOCYTES PERCENT AUTO 26 % (21-46); MONOCYTES ABSOLUTE AUTO 0.92 K/mm3 (0.16-1.47); MONOCYTES PERCENT AUTO 8 % (4-13); Mean Corpuscular HGB 28.7 pg (26.0-34.0); Mean Corpuscular HGB Conc 33.1 g/dL (31.5-36.5); Mean Corpuscular Volume 87 fL (80-100); Mean Platelet Volume 11.6 fL (9.1-12.4); NEUTROPHILS ABSOLUTE AUTO 7.62 K/mm3 (1.96-9.15); NEUTROPHILS PERCENT AUTO 63 % (41-73); Platelet Count 370 K/mm3 (150-400); Red Blood Cell Count 4.08 M/mm3 (4.30-5.90)
[2024-07-14 15:45] VITALS: BP 132/94
[2024-07-14] MEDS ORDERED: HYDHCL25 PO (15:59)
== END 2024-07-14 16:35 | disposition home or self-care (01) ==
LOC: ER 12:48
PROVIDERS: Emergency Medicine; Student in an Organized Health Care Education/Training Program
DX: I95.1 Orthostatic hypotension (principal); E78.00 Pure hypercholesterolemia, unspecified; E11.40 Type 2 diabetes mellitus with diabetic neuropathy, unspecified; I10 Essential (primary) hypertension; I25.2 Old myocardial infarction; F17.220 Nicotine dependence, chewing tobacco, uncomplicated; Z79.899 Other long term (current) drug therapy; Z79.82 Long term (current) use of aspirin; Z79.02 Long term (current) use of antithrombotics/antiplatelets; Z79.4 Long term (current) use of insulin; Z88.8 Allergy status to other drugs, medicaments and biological substances
CPT/HCPCS: 71045; 80053; 84484; 85025; 93005; 93010; 96360; 99284-25; J7030

== ENCOUNTER 2025-01-24 16:31 | Emergency (ER) | payer OTHER ==
[~2025-01-24] VITALS: Ht 185.4 cm; Wt 124.7 kg
[~2025-01-24 16:31] MED LIST changes: +HYDHCL25 PO
[2025-01-24] MEDS ORDERED: Ipratropium Bromide INH 0.02% 0.5 mg/2.5ML Vial INH SCH ×2 (17:45→20:30)
[2025-01-24] MEDS ORDERED: Albuterol 2.5 MG/3 ML VIAL INH SCH ×2 (17:45→20:30)
[2025-01-24 18:36] LABS: BASOPHILS ABSOLUTE AUTO 0.05 K/mm3 (0.00-0.23); BASOPHILS PERCENT AUTO 1 % (0-2); EOSINOPHILS ABSOLUTE AUTO 0.29 K/mm3 (0.00-0.68); EOSINOPHILS PERCENT AUTO 4 % (0-6); Hematocrit 29.6 % (37.0-53.0); Hemoglobin 9.8 g/dL (13.5-17.5); IMMATURE GRAN ABSOLUTE AUTO 0.03 K/mm3 (0.00-0.10); IMMATURE GRAN PERCENT AUTO 0 % (0-1); LYMPHOCYTES PERCENT AUTO 16 % (21-46); MONOCYTES ABSOLUTE AUTO 1.07 K/mm3 (0.16-1.47); MONOCYTES PERCENT AUTO 16 % (4-13); Mean Corpuscular HGB 28.1 pg (26.0-34.0); Mean Corpuscular HGB Conc 33.1 g/dL (31.5-36.5); Mean Corpuscular Volume 85 fL (80-100); NEUTROPHILS ABSOLUTE AUTO 4.28 K/mm3 (1.96-9.15); NEUTROPHILS PERCENT AUTO 63 % (41-73); Platelet Count 241 K/mm3 (150-400); RDW Standard Deviation 37.4 fL (35.1-46.3); Red Blood Cell Count 3.49 M/mm3 (4.30-5.90); White Blood Cell Count 6.82 K/mm3 (4.00-11.30)
[2025-01-24 19:19] LABS: Albumin, Blood 2.9 g/dL (3.4-5.0); Albumin/Globulin Ratio 0.8 (0.8-1.8); Bilirubin, Total 0.3 mg/dL (0.1-1.0); Bun/Creatinine Ratio 18.5 (12.0-20.0); Calcium, Blood 8.4 mg/dL (8.5-10.1); Creatinine, Blood 3.89 mg/dL (0.60-1.20); Globulin, Blood 3.6 g/dL (2.2-4.0); Potassium, Blood 4.1 mmol/L (3.5-5.5); Total Protein, Blood 6.5 g/dL (6.4-8.2)
[2025-01-24] MEDS ORDERED: Amoxicillin/Clavulanate K 875 MG Tab PO ONE (21:05)
[2025-01-24 21:47] VITALS: BP 160/60
[2025-01-24] MEDS ORDERED: PRED20 PO (22:08)
[2025-01-24] MEDS ORDERED: AMOCLA875 PO (22:08)
[2025-01-24] MEDS ORDERED: ALBU90OI INH (22:08)
[2025-01-24] MEDS ORDERED: ALBU2.5V5 INH (22:08)
== END 2025-01-24 22:32 | disposition home or self-care (01) ==
LOC: ER 16:31
PROVIDERS: Student in an Organized Health Care Education/Training Program
DX: J44.0 Chronic obstructive pulmonary disease with (acute) lower respiratory infection (principal); J18.9 Pneumonia, unspecified organism; J44.1 Chronic obstructive pulmonary disease with (acute) exacerbation; E78.00 Pure hypercholesterolemia, unspecified; E11.40 Type 2 diabetes mellitus with diabetic neuropathy, unspecified; I10 Essential (primary) hypertension; I25.2 Old myocardial infarction; F17.220 Nicotine dependence, chewing tobacco, uncomplicated; Z86.718 Personal history of other venous thrombosis and embolism; Z88.8 Allergy status to other drugs, medicaments and biological substances; Z79.4 Long term (current) use of insulin; Z79.01 Long term (current) use of anticoagulants; Z79.82 Long term (current) use of aspirin; Z79.899 Other long term (current) drug therapy; Z59.89 Other problems related to housing and economic circumstances
CPT/HCPCS: 71046; 80053; 83880; 84484; 85025; 93005; 93010; 94644; 94645; 94664; 99285-25; A9270

== ENCOUNTER 2025-02-14 15:45 | Emergency (ER) | payer OTHER ==
[~2025-02-14] VITALS: Ht 185.4 cm; Wt 124.7 kg
[~2025-02-14 15:45] MED LIST changes: +ALBU2.5V5 INH; +AMOCLA875 PO; +PRED20 PO
[2025-02-14 19:34] LABS: BASOPHILS ABSOLUTE AUTO 0.07 K/mm3 (0.00-0.23); BASOPHILS PERCENT AUTO 1 % (0-2); EOSINOPHILS ABSOLUTE AUTO 0.34 K/mm3 (0.00-0.68); EOSINOPHILS PERCENT AUTO 3 % (0-6); Hematocrit 26.6 % (37.0-53.0); Hemoglobin 8.9 g/dL (13.5-17.5); IMMATURE GRAN ABSOLUTE AUTO 0.06 K/mm3 (0.00-0.10); IMMATURE GRAN PERCENT AUTO 1 % (0-1); LYMPHOCYTES ABSOLUTE AUTO 1.31 K/mm3 (0.84-5.20); LYMPHOCYTES PERCENT AUTO 12 % (21-46); MONOCYTES ABSOLUTE AUTO 0.84 K/mm3 (0.16-1.47); MONOCYTES PERCENT AUTO 8 % (4-13); Mean Corpuscular HGB 28.3 pg (26.0-34.0); Mean Corpuscular HGB Conc 33.5 g/dL (31.5-36.5); Mean Corpuscular Volume 84 fL (80-100); Mean Platelet Volume 11.1 fL (9.1-12.4); NEUTROPHILS ABSOLUTE AUTO 7.98 K/mm3 (1.96-9.15); NEUTROPHILS PERCENT AUTO 75 % (41-73); Platelet Count 330 K/mm3 (150-400); RDW Coefficient Variation 12.3 % (11.7-14.2); RDW Standard Deviation 37.4 fL (35.1-46.3); Red Blood Cell Count 3.15 M/mm3 (4.30-5.90)
[2025-02-14 19:54] LABS: Albumin, Blood 2.4 g/dL (3.4-5.0); Albumin/Globulin Ratio 0.6 (0.8-1.8); Bilirubin, Total 0.3 mg/dL (0.1-1.0); Bun/Creatinine Ratio 14.7 (12.0-20.0); Calcium, Blood 8.2 mg/dL (8.5-10.1); Creatinine, Blood 4.09 mg/dL (0.60-1.20); Potassium, Blood 4.6 mmol/L (3.5-5.5); Total Protein, Blood 6.4 g/dL (6.4-8.2)
[2025-02-14 21:50] VITALS: BP 166/84
[2025-02-14 22:11] LABS: Source, Urine Clean Catch
[2025-02-14 22:14] LABS: Bilirubin, Urine Neg (Neg); Blood, Urine 3+ (Neg); Glucose Qualitative, Urine 4+ (Neg); Ketones, Urine Neg (Neg); Leukocyte Esterase, Urine Neg (Neg); Nitrite, Urine Neg (Neg); Protein, Urine 4+ (Neg); Urobilinogen, Urine NORM (Normal)
[2025-02-14 22:19] LABS: Appearance, Urine Clear (Clear); Color, Urine Pale Yellow (P-Yellow)
[2025-02-14 22:20] LABS: Bacteria Few /hpf; Red Blood Cells, Urine 0-2 /hpf (0-2); Squamous Epithelial Cells Few /hpf (Few); White Blood Cells, Urine 0-2 /hpf (0-5)
[2025-02-14] MEDS ORDERED: AZIT250 PO (23:54)
[2025-02-14] MEDS ORDERED: CEFD300 PO (23:54)
[2025-02-15] MEDS ORDERED: Azithromycin 250 MG Tab PO ONE (00:15)
[2025-02-15] MEDS ORDERED: Cefdinir 300 MG Cap PO ONE (00:15)
== END 2025-02-15 01:00 | disposition home or self-care (01) ==
LOC: ER 15:45
PROVIDERS: Student in an Organized Health Care Education/Training Program
DX: J18.9 Pneumonia, unspecified organism (principal); I12.9 Hypertensive chronic kidney disease with stage 1 through stage 4 chronic kidney disease, or unspecified chronic kidney disease; E11.22 Type 2 diabetes mellitus with diabetic chronic kidney disease; N18.4 Chronic kidney disease, stage 4 (severe); I25.2 Old myocardial infarction; E78.00 Pure hypercholesterolemia, unspecified; F17.220 Nicotine dependence, chewing tobacco, uncomplicated; Z88.8 Allergy status to other drugs, medicaments and biological substances; Z79.4 Long term (current) use of insulin; Z79.82 Long term (current) use of aspirin; Z79.899 Other long term (current) drug therapy
CPT/HCPCS: 71045; 71260; 76770; 80053; 81001; 84484; 85025; 93005; 93010; 99285-25; A9270; Q9967

== ENCOUNTER → 2025-03-01 | Outpatient (CLI) | payer OTHER ==
[~2025-03-01] MED LIST changes: +AZIT250 PO; +CEFD300 PO
[2025-03-06 16:03] LABS: ALBUMIN %,URINE 65.1 %; ALPHA-1 %,URINE 4.4 %; ALPHA-2 %,URINE 6.9 %; BETA GLOBULIN %,URINE 10.3 %; GAMMA GLOBULIN %,URINE 13.3 %; HOURS COLLECTED Random hr; TOTAL VOLUME Random mL
== END ==
LOC: LAB SHORT 10:30 → LAB 10:30 → LAB SHORT 03-02 10:30 → LAB FUT 02-28 16:40
PROVIDERS: Internal Medicine Nephrology
DX: N18.30 Chronic kidney disease, stage 3 unspecified (principal); D63.1 Anemia in chronic kidney disease; N25.81 Secondary hyperparathyroidism of renal origin; E78.00 Pure hypercholesterolemia, unspecified; R76.9 Abnormal immunological finding in serum, unspecified; R94.5 Abnormal results of liver function studies; G60.9 Hereditary and idiopathic neuropathy, unspecified
CPT/HCPCS: 84156; 84166; 86335

== ENCOUNTER → 2025-03-05 | Outpatient (CLI) | payer OTHER ==
[2025-03-05 14:54] LABS: Protein, Urine Quantitative 333.7 mg/dL (0.0-11.9); Sodium, Urine 62 mmol/L (20-110)
== END ==
LOC: LAB SHORT 12:56 → LAB 12:56
PROVIDERS: Internal Medicine Nephrology
DX: N18.30 Chronic kidney disease, stage 3 unspecified (principal); D63.1 Anemia in chronic kidney disease; N25.81 Secondary hyperparathyroidism of renal origin; E78.00 Pure hypercholesterolemia, unspecified; R94.5 Abnormal results of liver function studies; R76.9 Abnormal immunological finding in serum, unspecified; G60.9 Hereditary and idiopathic neuropathy, unspecified
CPT/HCPCS: 81050; 82043; 84156; 84300

== ENCOUNTER 2025-05-04 15:37 | Inpatient (IN) | payer OTHER ==
[~2025-05-04] VITALS: Ht 185.4 cm; Wt 129.8 kg
[2025-05-04 18:22] LABS: BASOPHILS ABSOLUTE AUTO 0.07 K/mm3 (0.00-0.23); BASOPHILS PERCENT AUTO 1 % (0-2); EOSINOPHILS ABSOLUTE AUTO 0.49 K/mm3 (0.00-0.68); EOSINOPHILS PERCENT AUTO 6 % (0-6); Hematocrit 28.7 % (37.0-53.0); Hemoglobin 9.4 g/dL (13.5-17.5); IMMATURE GRAN ABSOLUTE AUTO 0.04 K/mm3 (0.00-0.10); IMMATURE GRAN PERCENT AUTO 1 % (0-1); LYMPHOCYTES ABSOLUTE AUTO 1.91 K/mm3 (0.84-5.20); LYMPHOCYTES PERCENT AUTO 22 % (21-46); MONOCYTES ABSOLUTE AUTO 0.94 K/mm3 (0.16-1.47); MONOCYTES PERCENT AUTO 11 % (4-13); Mean Corpuscular HGB 28.2 pg (26.0-34.0); Mean Corpuscular HGB Conc 32.8 g/dL (31.5-36.5); Mean Corpuscular Volume 86 fL (80-100); Mean Platelet Volume 11.8 fL (9.1-12.4); NEUTROPHILS ABSOLUTE AUTO 5.14 K/mm3 (1.96-9.15); NEUTROPHILS PERCENT AUTO 60 % (41-73); Platelet Count 292 K/mm3 (150-400); RDW Coefficient Variation 14.2 % (11.7-14.2); Red Blood Cell Count 3.33 M/mm3 (4.30-5.90); White Blood Cell Count 8.59 K/mm3 (4.00-11.30)
[2025-05-04 18:54] LABS: Albumin, Blood 2.6 g/dL (3.4-5.0); Albumin/Globulin Ratio 0.8 (0.8-1.8); Bilirubin, Total 0.3 mg/dL (0.1-1.0); Bun/Creatinine Ratio 10.3 (12.0-20.0); Calcium, Blood 8.1 mg/dL (8.5-10.1); Creatinine, Blood 4.77 mg/dL (0.60-1.20); Globulin, Blood 3.4 g/dL (2.2-4.0); Potassium, Blood 4.1 mmol/L (3.5-5.5)
[2025-05-04] MEDS ORDERED: LEVOTHYROXINE25 MC9 PO (20:06)
[2025-05-04] MEDS ORDERED: METO100 PO (20:07)
[2025-05-04] MEDS ORDERED: FARXIGA5 MG PO (20:08)
[2025-05-04] MEDS ORDERED: Heparin Sodium,Porcine 5,000 UNIT/0.5 ML SDV SC SCH (21:00)
[2025-05-04] MEDS ORDERED: HYDROmorphone HCl 2 MG Tab PO SCH (21:55)
[2025-05-04] MEDS ORDERED: QUEtiapine Fumarate 100 MG Tab PO ONE (22:25)
[2025-05-05] VITALS (10 sets, daily range): BP systolic 152–191; BP diastolic 81–104
[2025-05-05] MEDS ORDERED: HydrALAZINE HCl 20 MG / ML 1ML Vial IV PRN (03:45)
[2025-05-05] MEDS ORDERED: Acetaminophen 325 MG TABLET PO PRN (03:45)
[2025-05-05 05:06] LABS: BASOPHILS ABSOLUTE AUTO 0.07 K/mm3 (0.00-0.23); BASOPHILS PERCENT AUTO 1 % (0-2); EOSINOPHILS ABSOLUTE AUTO 0.45 K/mm3 (0.00-0.68); EOSINOPHILS PERCENT AUTO 6 % (0-6); Hematocrit 24.8 % (37.0-53.0); Hemoglobin 8.1 g/dL (13.5-17.5); IMMATURE GRAN ABSOLUTE AUTO 0.04 K/mm3 (0.00-0.10); IMMATURE GRAN PERCENT AUTO 1 % (0-1); LYMPHOCYTES ABSOLUTE AUTO 2.07 K/mm3 (0.84-5.20); LYMPHOCYTES PERCENT AUTO 28 % (21-46); MONOCYTES ABSOLUTE AUTO 0.87 K/mm3 (0.16-1.47); MONOCYTES PERCENT AUTO 12 % (4-13); Mean Corpuscular HGB 28.3 pg (26.0-34.0); Mean Corpuscular HGB Conc 32.7 g/dL (31.5-36.5); Mean Corpuscular Volume 87 fL (80-100); Mean Platelet Volume 11.7 fL (9.1-12.4); NEUTROPHILS ABSOLUTE AUTO 3.99 K/mm3 (1.96-9.15); NEUTROPHILS PERCENT AUTO 53 % (41-73); Platelet Count 259 K/mm3 (150-400); RDW Coefficient Variation 14.1 % (11.7-14.2); RDW Standard Deviation 44.2 fL (35.1-46.3); Red Blood Cell Count 2.86 M/mm3 (4.30-5.90); White Blood Cell Count 7.49 K/mm3 (4.00-11.30)
--- NOTE | 2025-05-05 05:15 | NUR ---
SHIFT SUMMARY PT ARRIVED FROM ER AT 2014 VIA MOTORIZED HOME WC. LIFT USED TO TRANSFER PT FROM CHAIR TO BED. AT BEDSIDE. ORIENTED TO ROOM. PT C/O PAIN IN BACK AND MEDICATED PER EMAR WITH GOOD EFFECT. RIGHT LEG HAS DRESSING THAT WAS PLACED BY PODIATRY ON 05/01/25 AND PER , IS MEANT TO STAY IN PLACE FOR 10 DAYS. STATES PT HAS QUARTER SIZE WOUND THAT WAS "SCRAPED" TO PROMOTE WOUND HEALING. PT ABLE TO SLEEP ON AND OFF T/O NIGHT. BP ELEVATED WITH MORNING VITALS. DR CALLED AND HYDRALAZINE GIVEN PER ORDER. BED IN LOWEST POSITION AND CALL LIGHT IN REACH.
[2025-05-05 05:37] LABS: Bun/Creatinine Ratio 10.1 (12.0-20.0); Calcium, Blood 7.8 mg/dL (8.5-10.1); Creatinine, Blood 4.75 mg/dL (0.60-1.20); Potassium, Blood 3.6 mmol/L (3.5-5.5)
[2025-05-05] MEDS ORDERED: Insulin Regular 100 UNIT/ML 10ML Vial SC SCH (07:30)
[2025-05-05] MEDS ORDERED: CloNIDine HCl 0.2 MG Tab PO SCH (09:00)
[2025-05-05] MEDS ORDERED: Bumetanide 0.25 MG/ML 10ML Vial IV SCH (09:00)
--- NOTE | 2025-05-05 12:45 | NUR ---
NEPHROLOGY NOTIFICATION NOTE: NOTIFIED DR. BOO AT 1247 FOR CREATININE 4.75 LAB RESULT. RECEIVED ORDER TO GIVE OT DOSE IV BUMEX 2 MG AT 1800, DON'T CALL IR CONSULT, AND REPEAT LAB IN AM. NOTIFIED DR. GEORGE melton PLAN OF CARE.
[2025-05-05] MEDS ORDERED: QUET200 PO (15:34)
[2025-05-05] MEDS ORDERED: HYDMOR4 PO (15:36)
[2025-05-05] MEDS ORDERED: Darbepoetin Alfa In Albumn Sol 60 MCG/0.3 ML Syringe SC SCH (16:00)
[2025-05-05 17:17] LABS: Source, Urine Clean Catch
[2025-05-05 17:21] LABS: Appearance, Urine Clear (Clear); Bilirubin, Urine Neg (Neg); Blood, Urine 2+ (Neg); Color, Urine Yellow (P-Yellow); Glucose Qualitative, Urine 3+ (Neg); Ketones, Urine Neg (Neg); Leukocyte Esterase, Urine Neg (Neg); Nitrite, Urine Neg (Neg); Protein, Urine 4+ (Neg); Specific Gravity, Urine 1.015 (1.003-1.022); Urobilinogen, Urine NORM (Normal)
[2025-05-05 17:28] LABS: Bacteria Many /hpf; Squamous Epithelial Cells Rare /hpf (Few); White Blood Cells, Urine 0-2 /hpf (0-5)
--- NOTE | 2025-05-05 17:41 | NUR ---
SHIFT SUMMARY: PATIENT A/OX4, PLEASANT AND COOPERATIVE c CARE. PATIENT DENIES CP/PRESSURE, SOB, N/V AND DIZZINESS. PATIENT MEDICATED c SCHEDULED PAIN MEDS PER EMAR c GOOD EFFECT. PATIENT REFUSED BEDBATH AND BLOOD SUGAR CHECK BEFORE DINNER. PATIENT HAS GREAT APPETITE, CONTINENT OF BLADDER, USES URINAL IN BED INDEPENDENTLY. PATIENT HAD 850 MLS TOTAL URINE OUTPUT THIS SHIFT. 1L FR PER ORDER. VITAL SIGNS REVIEWED. CALL LIGHT IN REACH.
[2025-05-05] MEDS ORDERED: Bumetanide 0.25 MG/ML 10ML Vial IV ONE (18:00)
[2025-05-05] MEDS ORDERED: Bumetanide 1 MG Tab PO ONE (18:40)
[2025-05-05] MEDS ORDERED: HydrALAZINE HCl 10 MG Tab PO PRN (18:48)
[2025-05-05] MEDS ORDERED: Pregabalin 25 MG Capsule PO SCH (21:00)
[2025-05-05] MEDS ORDERED: QUEtiapine Fumarate 100 MG Tab PO SCH (21:00)
[2025-05-06] VITALS (10 sets, daily range): BP systolic 125–196; BP diastolic 67–100
--- NOTE | 2025-05-06 05:53 | NUR ---
SHIFT SUMMARY A&O X4. W/ KNOWN ESRD, EDEMA & SOME BRUISES. WITH DRESS ON R HAYS THAT SHOULD STAY FOR 7 DAYS. NIGHT MEDS GIVEN AT 8PM PT WANTS IT EARLY ON. BP SPIKED HIGH TWICE AT SHIFT AND CONTROLLED W/ PRN MED. PT THANKED US FOR HAVING GOOD NIGHT SLEEP AND PROPER TIMING OF VS TAKING/ CARE MGT. STILL ON HEPARIN MGT NOT MOVING MUCH. REFUSED CBG CHECK AT NIGHT. AWAITS PLAN FOR PROB CATH PLACEMENT PT HAS NOT HD YET.
[2025-05-06 05:55] LABS: Hematocrit 25.2 % (37.0-53.0); Hemoglobin 8.2 g/dL (13.5-17.5)
[2025-05-06] MEDS ORDERED: Levothyroxine Sodium 0.025 MG Tab PO SCH (06:00)
[2025-05-06 06:30] LABS: Anion Gap 11 mmol/L (3-11); Blood Urea Nitrogen 47 mg/dL (8-24); Bun/Creatinine Ratio 9.9 (12.0-20.0); CO2, Blood 23 mmol/L (21-32); Calcium, Blood 7.6 mg/dL (8.5-10.1); Chloride, Blood 109 mmol/L (98-108); Creatinine, Blood 4.74 mg/dL (0.60-1.20); Glomerular Filtration Rate 13 (60-); Glucose, Blood 110 mg/dL (70-99); Magnesium, Blood 2.2 mg/dL (1.6-2.4); Phosphorus, Blood 5.2 mg/dL (2.5-4.9); Sodium, Blood 139 mmol/L (136-145)
[2025-05-06] MEDS ORDERED: Clopidogrel Bisulfate 75 MG Tab PO SCH (09:00)
[2025-05-06] MEDS ORDERED: Aspirin 81 MG Chew PO SCH (09:00)
[2025-05-06] MEDS ORDERED: HydrALAZINE HCl 25 MG Tab PO ONE (15:30)
--- NOTE | 2025-05-06 16:49 | NUR ---
HOSPITALIST NOTIFICATION NOTE: PATIENT CONTINUES TO BE HYPERTENSIVE EVEN AFTER RECEIVING SCHEDULED AND PRN PO BP MEDS PER ORDER. PATIENT REQUESTING HIS BP HOME MED REGIMEN OF 100 MG PO METOPROLOL AND 60 MG PROCARDIA XL. NOTIFIED DR. VAZQUEZ, RECEIVED ORDERED TO GIVE 100 MP PO METOPROLOL AND 60 MG PO PROCARDIA XL NOW.
[2025-05-06] MEDS ORDERED: Metoprolol Tartrate 50 MG Tab PO ONE (17:00)
[2025-05-06] MEDS ORDERED: NIFEdipine 60 MG TabCR PO ONE (17:00)
--- NOTE | 2025-05-06 17:59 | NUR ---
SHIFT SUMMARY: PATIENT A/OX4, COOPERATIVE c CARE. PATIENT DENIES CP/PRESSURE, SOB, N/V AND DIZZINESS. PATIENT CONTINUES TO BE HYPERTENSIVE, DESPITE PRN AND SCHEDULED BP MEDS GIVEN. DR. VAZQUEZ IS AWARE OF THIS CONCERN. CREATININE TRENDING UP. DR. BOO (NEPHROLOGY) FOLLOWING CARE. IR CONSULT PLACED FOR HD CATHETER PLACEMENT. PATIENT REFUSED BEDBATH AND LINEN CHANGED TODAY. PATIENT RESTING IN BED T/O SHIFT. PATIENT HAS GREAT APPETITE, CONTINENT OF BLADDER, USES URINAL IN BED. PATIENT RECEIVED SCHEDULED MEDS PER EMAR. VITAL SIGNS REVIEWED. CALL LIGHT IN REACH.
--- NOTE | 2025-05-06 18:45 | NUR ---
PATIENT REFUSAL NOTE: PATIENT HAS INCONTINENT VOID, REFUSED UNDERWEAR AND LINEN CHANGED. PATIENT STATED, "NO NOT RIGHT NOW. I WILL CALL YOU WHEN I'M READY."
[2025-05-06] MEDS ORDERED: Metoprolol Tartrate 50 MG Tab PO SCH (21:00)
[2025-05-06] MEDS ORDERED: HydrALAZINE HCl 25 MG Tab PO SCH (21:00)
[2025-05-06] MEDS ORDERED: NIFEdipine 60 MG TabCR PO SCH ×2 (21:00)
--- NOTE | 2025-05-07 05:40 | NUR ---
SUMMARY: PT A/OX4, ENDORSES NEEDS AND HAS FLAT AFFECT BUT WAS COOPERATIVE W/CARE FOLLOWING ENCOURAGEMENT AND EDUCATION. HE'S W/C BOUND AT BASELINE W/LIFT REQUIRED FOR T/F'S AND TURN SCHEDULE MAINTAINED FOR WEAKNESS AND DECONDITIONING. SLIGHT EXCORIATION NOTED TO SCROTUM AND LENORE AREA D/T MOISTURE FROM INCONTINENCE. PT ADMITS TO PROBABLE URINAL SPILLING AND LACKING SENSATION OF WHEN HE "STARTS OR STOPS URINE FLOW LEADING TO ACCIDENTS". LOW UO IS OBSERVED MALE PUREWIC WAS PLACED FOR SBD PREVENTION AFTER THOROUGH PARTIAL BED BATH W/THUROUGH SKIN CARE. HE'[place] BEEN [place]CE [place] PENDING IR CONSULT AND PROBABLE HD CATH PLACEMENT TODAY. BLES REMAIN 2+ EDEMA W/GENERAL ANASARCA OBSERVED. PT REFUSED HYDRALAZINE DESPITE SBP 180'S D/T DESIRE TO SEE HOW BP RESPONDED TO OTHER ANTIHYPERTENSIVES, BP WAS 125/67 UPON REEVALUATION. DX REMAINS IN PLACE TO [place] FROM PREVIOUS DEBRIDEMENT PROCEDURE AND PT EXPLAINED DX WAS TO REMAIN IN PLACE X7 DAYS PENDING F/U OUTPT. SCHEDULED DILAUDID IS BEING RECEIVED FOR CHRONIC BACK AND LEG PAIN AND NO OTHER COMPLAINTS EXPRESSED. VSS/AEBRILE AND NO ACUTE CHANGES. WILL REPORT TO DAY RN.
[2025-05-07 06:06] VITALS: BP 133/73
--- NOTE | 2025-05-07 06:34 | NUR ---
PT HAS HAD NO UO THIS SHIFT. BLADDER SCAN WAS 437 MLS RETAINED AND MADE AWARE. NO ST.CATH ORDERS RECEIVED AT THIS TIME BUT REITTERATED NEED FOR IR CX AND HD CATH PLACEMENT TODAY. WILL ENSURE DAY RN IS AWARE.
--- NOTE | 2025-05-07 06:37 | NUR ---
PT REQUESTED TO BE MADE FULL CODE AFTER HAVING LENGTHY DISCUSSION W/HIS . HE IS A/OX4 AND IS OF SOUND MIND W/JUDGEMENT INTACT. CONVERSATION HAD W/ AND CODE STATUS WAS CHANGED PER PT'S WISHES.
[2025-05-07 06:48] LABS: Hematocrit 26.2 % (37.0-53.0); Hemoglobin 8.4 g/dL (13.5-17.5)
[2025-05-07 07:15] LABS: Albumin, Blood 1.9 g/dL (3.4-5.0); Anion Gap 10 mmol/L (3-11); Blood Urea Nitrogen 49 mg/dL (8-24); Bun/Creatinine Ratio 10.2 (12.0-20.0); CO2, Blood 24 mmol/L (21-32); Calcium, Blood 7.7 mg/dL (8.5-10.1); Chloride, Blood 108 mmol/L (98-108); Creatinine, Blood 4.82 mg/dL (0.60-1.20); Glomerular Filtration Rate 13 (60-); Glucose, Blood 188 mg/dL (70-99); Magnesium, Blood 2.2 mg/dL (1.6-2.4); Phosphorus, Blood 5.1 mg/dL (2.5-4.9); Sodium, Blood 138 mmol/L (136-145)
[2025-05-07 08:20] VITALS: BP 128/71
[2025-05-07] MEDS ORDERED: Insulin Glargine-Yfgn 100 Unit/mL 3 ML SYR SC SCH (09:00)
[2025-05-07] MEDS ORDERED: Bumetanide 1 MG Tab PO SCH (09:00)
[2025-05-07 15:09] VITALS: BP 125/72
--- NOTE | 2025-05-07 18:33 | NUR ---
DAY SUMMARY PT A&OX4, VSS, REFUSING AC CBG SHECKS & LAB DRAWS IF THEY ARENT ABLE TO OBTAIN SAMPLE ON FIRST STICK, PLAN IS FOR DIALYSIS CATH PLACEMENT IN AM, PT AWARE THAT HE WILL BE NPO AT MIDNIGHT. BEDRESTING AT THIS TIME, CALL LIGHT IN REACH, WILL CONT TO MONITOR UNTIL REPORT GIVEN TO ONCOMING NURSE.
[2025-05-07 19:41] VITALS: BP 129/68
[2025-05-07] MEDS ORDERED: HYDROmorphone HCl 2 MG Tab PO SCH (21:00)
[2025-05-08 02:40] VITALS: BP 151/82
--- NOTE | 2025-05-08 04:23 | NUR ---
SUMMARY: PT A/O4, ENDORSES NEEDS AND IS COOPERATIVE W/CARE BUT OCCASIONALLY REFUSES LAB DDRAS AND CBG CHECKS. HE'S GROSSLY DECONDITIONED ON BEDREST W/LIFT REQUIRED OOB TO CHAIR/MOTORIZED SCOOTER AND TURN SCHEDULE IS MAINTAINED. PUREWICK IN PLACE FOR URGENCY AND LACKING SENSATION TO VOID. [place] BEEN [place] FOR HD CATH PLACEMENT TODAY AND 1L FR MAINTAINED PRIOR. BLE EDEMA PERSISTS AND DX TO RLE IS C/D/I BUT DUE TO BE REMOVED TODAY, WILL ADVISE DAY RN OF NEED FOR PHOTOS. DILAUDID RECEIVED PER EMAR FOR TOLERABLE RELIEF OF CHRONIC LEG AND BACK PAIN. HE CONT'S TO REFUSE HYDRALAZINE BUT BP IS WNL W/SCHEDULE ANTIHYPERTENSIVES. NO ACUTE CHANGES, VSS/AFEBRILE. WILL REPORT TO DAY RN.
[2025-05-08 05:31] LABS: Hematocrit 26.6 % (37.0-53.0); Hemoglobin 8.6 g/dL (13.5-17.5)
[2025-05-08 05:53] LABS: Albumin, Blood 1.9 g/dL (3.4-5.0); Anion Gap 9 mmol/L (3-11); Blood Urea Nitrogen 52 mg/dL (8-24); Bun/Creatinine Ratio 10.5 (12.0-20.0); CO2, Blood 25 mmol/L (21-32); Calcium, Blood 7.5 mg/dL (8.5-10.1); Chloride, Blood 106 mmol/L (98-108); Creatinine, Blood 4.93 mg/dL (0.60-1.20); Glomerular Filtration Rate 13 (60-); Glucose, Blood 123 mg/dL (70-99); Magnesium, Blood 2.3 mg/dL (1.6-2.4); Phosphorus, Blood 5.4 mg/dL (2.5-4.9); Potassium, Blood 4.3 mmol/L (3.5-5.5); Sodium, Blood 136 mmol/L (136-145)
[2025-05-08 07:18] VITALS: BP 128/75
[2025-05-08] MEDS ORDERED: NS 250 ML IV ONE (09:51)
[2025-05-08] MEDS ORDERED: Heparin Sodium 1000 Units/ML 10ML MDV ONE (09:51)
[2025-05-08] MEDS ORDERED: NS 500 ML IV ONE (10:07)
[2025-05-08] MEDS ORDERED: FentaNYL Citrate 50 MCG/ML 2 ML Injection ONE (10:07)
[2025-05-08] MEDS ORDERED: Midazolam HCl 1MG / ML 2ML Vial ONE (10:07)
[2025-05-08] MEDS ORDERED: Heparin Sodium 10,000 Units/ML 1ML MDV ONE (10:35)
[2025-05-08 14:22] VITALS: BP 126/75
[2025-05-08 19:39] VITALS: BP 145/77
[2025-05-09] VITALS (15 sets, daily range): BP systolic 121–161; BP diastolic 68–82
--- NOTE | 2025-05-09 04:36 | NUR ---
SHIFT SUMMARY A&OX4. ABLE TO MAKE NEEDS KNOWN. FULL CODE. ADMITTED FOR ESRD. PORT INSERTED YESTERDAY. DRESSING C/D/I. PT REPORTS MINIMAL DISCOMFORT TO THIS AREA. PLAN IS FOR PT TO RECEIVE DIALYSIS TODAY AND RECEIVE STAT LABS FIRST THING IN AM. PUREWICK IN PLACE AND FULLY FUNCTIONING. PT HAD SOME PAIN DURING SHIFT AND MEDICATION ADMINISTERED PER EMAR. PT SLEPT RESTFULLY THROUGHOUT SHIFT. RLL DRESSING REMAINS C/D/I. CALL LIGHT WITHIN REACH.
--- NOTE | 2025-05-09 08:46 | NUR ---
pt left for dialysis via bed with charge nurse and detail drafter, pt is a/ox4, pleasant and cooperative with care, follows commands well, reports pain 4/10, gave po pain meds, swallows without diff, lungs are clear t/o, resp even and unlabored, no cough noted, on r/a, hrr, 3+ edema noted to b/l le, cap refll <3 sec, ppp faint, perma cath to rcw, site is c/d/i, btx4, reports no bm for days and has to use suppositories at home, offered prune juice when he returns purwick in place, skin has dressing to right heel, states is chronic wound, moves upper ext well, is a lift to the chair, angie, call light in reach.
--- NOTE | 2025-05-09 13:02 | NUR ---
Fabio (pt) is awake and alert. Pt reports that dialysis as well as other procedures have gone smoothly. Pt has an extensive history of medical complications. When asked how he remains positive, he responds "god." Pt is deeply connected to his angie in god and also receives support from local family. Pt describes the difficulty others have with connecting with god because of not being able to connect with something beyond human senses. Pt describes interaction with staff as postive and has had an overall positive experience, in spite of his health problems. Encouraged pt in his positive mindset and provided prayer. Pt thanked me for the prayer and conversation.
--- NOTE | 2025-05-09 17:47 | NUR ---
SHIFT SUMMARY PT A&OX4, HYPERTENSION MEDICATED PER EMAR, BEDRIDDEN AT THIS TIME, TOLERATING PO, VOIDING, AND PAIN MANAGED PER EMAR. PT HAD DIALYSIS THIS AM. PT COOPERATIVE W/ SOME CARE. PT REFUSES BLOOD GLUCOSE CHECKS AND INSULIN. NO OTHER ACUTE CHANGES. CALL LIGHT WIHTIN REACH AND PT ABLE TO MAKE NEEDS KNOWN.
[2025-05-10] VITALS (16 sets, daily range): BP systolic 70–144; BP diastolic 42–103
--- NOTE | 2025-05-10 04:26 | NUR ---
SHIFT SUMMARY PT ADMITTED FOR ESRD NEEDING DIALYSIS. A&OX4. ABLE TO MAKE ALL NEEDS KNOWN. PUREWICK IN PLACE AND PATENT AND DRAINING. RECEIVED DIALYSIS YESTERDAY AND TOLERATED WELL. WAS SITTING ON EDGE OF BED AT START OF SHIFT. PT REPOSITIONED AND BOOSTED IN BED WITH NEW UNDERPAD PLACED. DRESSING TO RLL C/D/I. PERMACATH PORT DRESSING C/D/I. POTENTIAL PLAN IS TO GO HOME WITH HH AND SET UP OUTPATIENT HD CHAIR. PT REQUESTS BOWEL CARE. WILL REPORT TO DAY RN. PT RESTING THROUGHOUT SHIFT WITH CALL LIGHT WITHIN REACH.
[2025-05-10] MEDS ORDERED: Polyethylene Glycol 3350 17 gm PO PRN (09:45)
--- NOTE | 2025-05-10 12:19 | NUR ---
Roxi (pt) is awake and alert. Facilitated an update. Pt reports another treatment of dialysis has went well. Pt expects to be discharged soon following the decision of where to receive dialysis treatment outside of the hospital. Pt is feeling ready to be home but mentions his concerns about the work load on his spouse. Pt is experiencing pain in his feet and reports this as fairly regular. Prayed with pt and he thanked me for the visit.
--- NOTE | 2025-05-10 17:15 | NUR ---
SHIFT SUMMARY PT HAD DIALYSIS TODAY AND TOLERATED IT WELL. PT STATES HE HAS NOT HAD A BM FOR 1 WEEK. THIS RN CALLED TO NOTIFY AND RECEIVED NEW ORDER IN EMAR. NO OTHER ACUTE CHANGES. CALL LIGHT WITHIN REACH AND PT ABLE TO MAKE NEEDS KNOWN.
[2025-05-10 20:35] LABS: Albumin, Blood 1.9 g/dL (3.4-5.0); Anion Gap 7 mmol/L (3-11); Blood Urea Nitrogen 31 mg/dL (8-24); Bun/Creatinine Ratio 8.8 (12.0-20.0); CO2, Blood 29 mmol/L (21-32); Chloride, Blood 105 mmol/L (98-108); Creatinine, Blood 3.52 mg/dL (0.60-1.20); Glomerular Filtration Rate 19 (60-); Glucose, Blood 155 mg/dL (70-99); Magnesium, Blood 2.1 mg/dL (1.6-2.4); Phosphorus, Blood 3.7 mg/dL (2.5-4.9); Potassium, Blood 4.3 mmol/L (3.5-5.5); Sodium, Blood 137 mmol/L (136-145)
[2025-05-10] MEDS ORDERED: Sennosides 8.6 MG Tab PO SCH (21:00)
[2025-05-10] MEDS ORDERED: HYDROmorphone HCl 4 MG Tab PO SCH (21:00)
[2025-05-10 22:31] LABS: BASOPHILS ABSOLUTE AUTO 0.07 K/mm3 (0.00-0.23); BASOPHILS PERCENT AUTO 1 % (0-2); EOSINOPHILS ABSOLUTE AUTO 0.39 K/mm3 (0.00-0.68); EOSINOPHILS PERCENT AUTO 5 % (0-6); Hematocrit 27.5 % (37.0-53.0); Hemoglobin 8.9 g/dL (13.5-17.5); IMMATURE GRAN ABSOLUTE AUTO 0.07 K/mm3 (0.00-0.10); IMMATURE GRAN PERCENT AUTO 1 % (0-1); LYMPHOCYTES ABSOLUTE AUTO 2.04 K/mm3 (0.84-5.20); LYMPHOCYTES PERCENT AUTO 24 % (21-46); MONOCYTES ABSOLUTE AUTO 1.17 K/mm3 (0.16-1.47); MONOCYTES PERCENT AUTO 14 % (4-13); Mean Corpuscular HGB 28.4 pg (26.0-34.0); Mean Corpuscular HGB Conc 32.4 g/dL (31.5-36.5); Mean Corpuscular Volume 88 fL (80-100); Mean Platelet Volume 12.5 fL (9.1-12.4); NEUTROPHILS ABSOLUTE AUTO 4.91 K/mm3 (1.96-9.15); NEUTROPHILS PERCENT AUTO 57 % (41-73); Platelet Count 271 K/mm3 (150-400); RDW Coefficient Variation 15.1 % (11.7-14.2); RDW Standard Deviation 47.8 fL (35.1-46.3); Red Blood Cell Count 3.13 M/mm3 (4.30-5.90); White Blood Cell Count 8.65 K/mm3 (4.00-11.30)
[2025-05-10 22:41] LABS: Anion Gap 7 mmol/L (3-11); Blood Urea Nitrogen 31 mg/dL (8-24); Bun/Creatinine Ratio 8.7 (12.0-20.0); CO2, Blood 29 mmol/L (21-32); Calcium, Blood 7.8 mg/dL (8.5-10.1); Chloride, Blood 104 mmol/L (98-108); Creatinine, Blood 3.56 mg/dL (0.60-1.20); Glomerular Filtration Rate 19 (60-); Glucose, Blood 179 mg/dL (70-99); Magnesium, Blood 2.1 mg/dL (1.6-2.4); Phosphorus, Blood 3.7 mg/dL (2.5-4.9); Potassium, Blood 4.2 mmol/L (3.5-5.5); Sodium, Blood 136 mmol/L (136-145)
--- NOTE | 2025-05-10 22:54 | NUR ---
CALLED CONSULT/HOSPITALIST CHANGE OF PT'S MENTATION NOTED AT BEGINNING OF SHIFT. CALLED RENAL CONSULT. NEW LABS ORDERED. RESULTS WERE EXPECTED. VITALS TAKEN WERE WNL. CALLED HOSPITALIST AND REQUESTED BEDSIDE EVALUATION. HOSPITALIST ARRIVED AT BEDSIDE. FAMILY AT BEDSIDE. NEW LABS ORDERED. MEDS HELD. AWAITING NEW ORDERS.
[2025-05-11] VITALS (17 sets, daily range): BP systolic 130–202; BP diastolic 72–100
--- NOTE | 2025-05-11 04:23 | NUR ---
SHIFT SUMMARY ADMITTED FOR DIALYSIS. FULL CODE. NEW PERMACATH PLACED 05/08. DIALYSIS PERFORMED ON PREVIOUS SHIFT. CONSULT REQUESTS NEW FLUID RESTRICTION AMOUNT OF 1.5L. CONSULT STATES THAT THE PATIENT MAY HAVE HIS GATORADE. PT REPORTED HALLUCINATIONS TOWARDS THE BEGINNING OF MY SHIFT. CONSULT ORDERED STAT LABS, ALL TRENDING EXPECTED. THESE HALLUCINATIONS REPORTEDLY CONTINUED SO I REQUESTED HOSPITALIST AT BEDSIDE. FAMILY IN ROOM WERE CONCERNED ABOUT THESE HALLUCINATIONS WELL. NEW LABS ORDERED. ALL MEDS HELD DUE TO AMS. TOWARDS END OF SHIFT THE PT REPORTED A MIRACULOUS RETURN TO BASELINE, SUDDENLY A&O X4, AND NO MORE HALLUCINATIONS. HE REQUESTED HIS PAIN MEDICATIONS THAT HAD BEEN HELD. I CALLED THE HOSPITALIST TO VERIFY THAT THESE WERE SAFE TO ADMINISTER. PLAN IS TO SET UP AN HD OUTPATIENT CHAIR FOR DIALYSIS.
[2025-05-11 05:20] LABS: Hemoglobin 9.1 g/dL (13.5-17.5)
[2025-05-11 05:41] LABS: Albumin, Blood 1.9 g/dL (3.4-5.0); Anion Gap 7 mmol/L (3-11); Blood Urea Nitrogen 32 mg/dL (8-24); Bun/Creatinine Ratio 8.9 (12.0-20.0); CO2, Blood 27 mmol/L (21-32); Chloride, Blood 105 mmol/L (98-108); Creatinine, Blood 3.59 mg/dL (0.60-1.20); Glomerular Filtration Rate 19 (60-); Glucose, Blood 125 mg/dL (70-99); Magnesium, Blood 2.2 mg/dL (1.6-2.4); Phosphorus, Blood 4.3 mg/dL (2.5-4.9); Potassium, Blood 4.2 mmol/L (3.5-5.5); Sodium, Blood 135 mmol/L (136-145)
[2025-05-11] MEDS ORDERED: Albumin (Human) 25gm/100ml 100 ML IV SCH (07:25)
--- NOTE | 2025-05-11 16:36 | NUR ---
NOTICED PATIENT HAD LOTS OF CHEWING TOBACCO IN LIP THIS EVENING. EDDUCATED PATIENT THIS IS NOT ALLOWED PER HOSPITAL POLICY. HAD PT SPIT IT OUT AND COLLECTED 4 CANS OF CHEW FROM PATIENTS JACKET POCKET WITH HIS PERMISSION AND LOCKED IN DRAWER. WHEN SEARCHING JACKET POCKET FOUND PILL BOTTLE OF PATIENTS HOME DOSE OF DILAUDID 4 MG. ECUCATED PATIENT HE CAN NOT KEEP THIS AT BEDSIDE ASKED IF HIS WOULD BE BY TODAY IN ORDER TO TAKE THIS HOME AND HE SAID NO. TOOK BOTTLE TO PHARMAC TO STORE, PATIENT HAD 10 PILLS OF DILAUDID AND 2 PILLS OF LORAZEPAM IN THE BOTTLE. RECEPIT COLLECTED FROM PHARMACY AND PLACED ON FRONT OF CHART.
--- NOTE | 2025-05-11 18:23 | NUR ---
SUMMARY PT HAD DIALYSIS THIS AM, PER REPORT 2L REMOVED. B/P ELEVATED POST DIALYSIS, SHCEDULED MEDICATIONS GIVEN LATE, THEN SCHEDULED IN THE AFTERNOON WHICH DID BRING DOWN B/P. PT HAS 1500 ML RESTRICTION BUT IS NOT NEAR TOTAL. PT TOOK A NAP AND WOKE UP SLIGHTLY CONFUSED BUT EASILY REORIENTED. PT CHEWING TOBACCO LOCKED IN DRAWER. HOME MED DILAUDID SENT TO PHARMACY TO STORE, RECEIPT ON FRONT OF CHART. PT BASELINE WHEELCHAIR, HAS NOT BEEN UP OOB THIS SHIFT. REFUSES CERTAIN MEDS AND NURSING CARE, REFUSED NOON BLOOD GLUCOSE BECAUSE HE STATES HE ONLY WANTS TO BE PRICKED ON ONE FINGER AND THAT FINGER IS GETTING TOO PAINFUL, DOES NOT WANT NERVE DAMAGE TO REST OF HIS FINGERS. MALE PUREWICK REPLACED. PT REFUSED BED BATH TODAY. ABLE TO MAKE NEEDS KNOWN.
--- NOTE | 2025-05-12 04:33 | NUR ---
SHIFT SUMMARY PATIENT HAD NO ACUTE CHANGES. ALERT ORIENTED AND W/C BASELINE. PUREWICK IN PLACE. DENIES CHEST PAIN, SOB, AND N/V. VSS/AFEBRILE. SCHEDULE PO DILAUDID 4 MG FOR BILATERAL FEET PAIN. FLUID RESTRICTION 1,500 mL. NO IV ACCESS. PERMACATH RU CHEST. COOPERATIVE WITH CARE. CALL LIGHT IN REACH. BED IN LOWEST POSITION. WILL CONTINUE TO MONITOR UNTIL DAY SHIFT NURSE ASSUMES CARE.
[2025-05-12 05:06] VITALS: BP 153/74
[2025-05-12 05:19] LABS: Hematocrit 28.5 % (37.0-53.0); Hemoglobin 9.1 g/dL (13.5-17.5)
[2025-05-12 05:54] LABS: Magnesium, Blood 2.2 mg/dL (1.6-2.4)
[2025-05-12 05:55] LABS: Albumin, Blood 2.1 g/dL (3.4-5.0); Anion Gap 8 mmol/L (3-11); Blood Urea Nitrogen 25 mg/dL (8-24); Bun/Creatinine Ratio 8.6 (12.0-20.0); CO2, Blood 31 mmol/L (21-32); Chloride, Blood 105 mmol/L (98-108); Creatinine, Blood 2.91 mg/dL (0.60-1.20); Glomerular Filtration Rate 24 (60-); Glucose, Blood 126 mg/dL (70-99); Phosphorus, Blood 3.9 mg/dL (2.5-4.9); Potassium, Blood 3.6 mmol/L (3.5-5.5); Sodium, Blood 140 mmol/L (136-145)
[2025-05-12 07:25] VITALS: BP 141/72
[2025-05-12] MEDS ORDERED: Calcium Acetate 667 MG Gel Cap PO SCH (08:30)
[2025-05-12] MEDS ORDERED: Sevelamer Carbonate 800 MG Tab PO SCH (08:30)
[2025-05-12] MEDS ORDERED: Vitamin B Cmplx/Vit C/Folic Ac 1 Tab PO SCH (09:00)
[2025-05-12 12:54] VITALS: BP 128/72
--- NOTE | 2025-05-12 15:51 | NUR ---
SUMMARY DR. BOO CAME BY THIS AM AND PT IS NOT GETTING DIALYSIS TODAY BUT WILL GO TOMORROW. PT SLEPT A GOOD PORTION OF THE MORNING. APPETITE OK. BED BATH GIVEN. SJ AND APARNA CHAGNED. PT APPEARS TO HAVE SLIGHT CONFUSION UPON WAKING UP, FORGETS WHERE HE IS. BUT IS EASILY REORITENTED. NO ACUTE EVENTS. SCHEDULED PAIN MED GIVEN IN AM.
[2025-05-12 17:08] VITALS: BP 126/68
--- NOTE | 2025-05-12 18:40 | NUR ---
CALLED PHARMACY TO VERIFY IF COULD TRANSCRIBING MACHINE MECHANIC PATIENTS LOCKED CONTROLLED SUBSTANCES TO TAKE HOME. RECEIPT GIVEN TO AND WALKED TO PHARMACY. SIGNED OUT CONTROLLED SUBSTANCE AND PT AGREEABLE TO HAVE HER TAKE HOME. EDUCATED THAT SHE CAN NOT LEAVE THESE IN HIS ROOM.
[2025-05-12 19:16] VITALS: BP 165/79
[2025-05-13] VITALS (20 sets, daily range): BP systolic 118–182; BP diastolic 50–95
--- NOTE | 2025-05-13 04:02 | NUR ---
SHIFT SUMMARY PATIENT HAD NO ACUTE CHANGES. ALERT ORIENTED AND BEDREST. DENIES CHEST PAIN, SOB, AND N/V. VSS/AFEBRILE. SCHEDULED PO DILAUDID FOR FEET PAIN. NO IV ACCESS. PUREWICK IN PLACE. REFUSED CBG CHECK. SLEPT MOST OF THE SHIFT. CALL LIGHT IN REACH. BED IN LOWEST POSITION. WILL CONTINUE TO MONITOR UNTIL DAY SHIFT NURSE ASSUMES CARE.
[2025-05-13 05:40] LABS: Hematocrit 29.7 % (37.0-53.0); Hemoglobin 9.3 g/dL (13.5-17.5)
[2025-05-13 06:04] LABS: Magnesium, Blood 2.2 mg/dL (1.6-2.4)
[2025-05-13 06:05] LABS: Anion Gap 9 mmol/L (3-11); Blood Urea Nitrogen 26 mg/dL (8-24); Bun/Creatinine Ratio 7.2 (12.0-20.0); CO2, Blood 29 mmol/L (21-32); Calcium, Blood 7.9 mg/dL (8.5-10.1); Chloride, Blood 105 mmol/L (98-108); Creatinine, Blood 3.63 mg/dL (0.60-1.20); Glomerular Filtration Rate 18 (60-); Glucose, Blood 123 mg/dL (70-99); Phosphorus, Blood 4.6 mg/dL (2.5-4.9); Potassium, Blood 3.8 mmol/L (3.5-5.5); Sodium, Blood 139 mmol/L (136-145)
[2025-05-13 09:51] LABS: HBV CORE ANTIBODIES,TOTAL Negative (Negative)
[2025-05-13 10:57] LABS: HEPATITIS B SURFACE ANTIGEN Negative (Negative)
[2025-05-13 14:26] LABS: HEPATITIS A ANTIBODY, IGM Negative (Negative); HEPATITIS B CORE ANTIBODY, IGM Negative (Negative); HEPATITIS B SURFACE ANTIGEN Negative (Negative); HEPATITIS C AB CIA INTERP Negative (Negative); HEPATITIS C ANTIBODY CIA INDEX <0.02 IV
--- NOTE | 2025-05-13 16:40 | NUR ---
SHIFT SUMMARY PT AOX4, COOPERATIVE, ABLE TO MAKE NEEDS KNOWN. PT HAD DIALYSIS TODAY WHERE THEY TOOK OFF 2LITERS OF FLUID TOLD BY LITHOGRAPHING MACHINE OPERATOR. PT IS BEDREST CURRENLTY. TOLERATING PO MEDICATION. NO IV ACCESS ORDERED. DID REFUSE NOON TIME BLOOD SUGAR AND SUBSEQUENT INSULIN ADMIN. CBG THIS AM WAS APPROPRIATE, THIS RN DID INFORM SINCE NO CBG, THIS RN WOULD NOT BE ABLE TO GIVE INSULIN, PT UNDERSTOOD. AWAITING DIALYSIS CHAIR, DID NOT SEE ANY CASE MANAGMENT NOTE ABOUT TOPIC. BED IN LOWEST POSITION, CALL LIGHT WITHIN REACH.
[2025-05-14] VITALS (20 sets, daily range): BP systolic 139–161; BP diastolic 61–99
--- NOTE | 2025-05-14 04:20 | NUR ---
SHIFT SUMMARY PATIENT HAD NO ACUTE CHANGES. ALERT ORIENTED AND BEDREST. DENIES CHEST PAIN, SOB, AND N/V. HYPERTENSIVE. PO DILAUDID GIVEN FOR BILATERAL FOOT PAIN. PUREWICK IN PLACE. FLUID RESTRICTIONS 1,500 mL. NO IV ACCESS. CALL LIGHT IN REACH. BED IN LOWEST POSITION. WILL CONTINUE TO MONITOR UNTIL DAY SHIFT NURSE ASSUMES CARE.
[2025-05-14 06:30] LABS: Hematocrit 29.2 % (37.0-53.0); Hemoglobin 9.3 g/dL (13.5-17.5)
[2025-05-14 06:45] LABS: Magnesium, Blood 2.1 mg/dL (1.6-2.4)
[2025-05-14 06:46] LABS: Albumin, Blood 1.9 g/dL (3.4-5.0); Anion Gap 5 mmol/L (3-11); Blood Urea Nitrogen 22 mg/dL (8-24); Bun/Creatinine Ratio 7.2 (12.0-20.0); CO2, Blood 35 mmol/L (21-32); Calcium, Blood 7.6 mg/dL (8.5-10.1); Chloride, Blood 104 mmol/L (98-108); Creatinine, Blood 3.06 mg/dL (0.60-1.20); Glomerular Filtration Rate 23 (60-); Glucose, Blood 107 mg/dL (70-99); Phosphorus, Blood 3.5 mg/dL (2.5-4.9); Potassium, Blood 3.7 mmol/L (3.5-5.5); Sodium, Blood 140 mmol/L (136-145)
--- NOTE | 2025-05-14 09:53 | NUR ---
MD CONTACT NOTIFIED MD THAT PATIENT CONITNUES TO REFUSE CBG CHECKS AND INSULIN ADMINISTRATION. LAB DRAW INSULIN REMAIN <150. ORDER FOR ACHS INSULIN DISCONTINUE AND CBG ACHS DISCONTINUED AND NOW PRN FOR S/S OF HYPOGLYCEMIA.
[2025-05-14] MEDS ORDERED: NEPHRO VITAMIN0.8 MG PO (15:11)
[2025-05-14] MEDS ORDERED: SEVEC800 PO (15:12)
[2025-05-14] MEDS ORDERED: Calcium Acetat667 MG PO (15:12)
--- NOTE | 2025-05-14 17:23 | NUR ---
WOUND CARE CLEANED PTS RIGHT ANKLE OPEN WOUND WITH WOUND BAKER CHEF, APPLIED HYDROGEL TO WOUND COVERED WITH MEPILEX FOAM AND WRAPPED WITH MAN BANDAGE. PT TOLERATED WELL
--- NOTE | 2025-05-14 18:06 | NUR ---
SHIFT SUMMARY PATIENT A/OX4, ABLE TO MAKE NEEDS KNOWN. PLEASANT AND COOPERATIVE WITH CARE. DIALYSIS COMPLETED THIS MORNING. INSULIN ADN ACHS CBGs DISCONTINUED. WOUND CARE PROVIDED TO RIGHT ANKLE PER ORDER. PATIENT HAS A CHAIR FOR DAILYSIS OUTPATIENT AT [facility] M/W/ AT 1600, AWAITING LAB WORK UNTIL CLEARED FOR DISCHARGE. FAMILY AT BEDSIDE CURRENTLY. NO OTHER CONCERNS AT THIS TIME.
[2025-05-15 04:16] VITALS: BP 174/75
[2025-05-15 06:29] LABS: Hematocrit 30.4 % (37.0-53.0); Hemoglobin 9.7 g/dL (13.5-17.5)
--- NOTE | 2025-05-15 06:47 | NUR ---
Shift Summary No acute changes. Dressings remain CDI. 1500 mL fluid restriction maintaned. No c/o of pain or nausea. Awaiting labs for [facility]. Pt on bedrest. +3 edema BLE.
[2025-05-15 06:54] LABS: Albumin, Blood 1.9 g/dL (3.4-5.0); Anion Gap 6 mmol/L (3-11); Blood Urea Nitrogen 18 mg/dL (8-24); Bun/Creatinine Ratio 6.7 (12.0-20.0); CO2, Blood 35 mmol/L (21-32); Calcium, Blood 7.7 mg/dL (8.5-10.1); Chloride, Blood 102 mmol/L (98-108); Creatinine, Blood 2.68 mg/dL (0.60-1.20); Glomerular Filtration Rate 26 (60-); Glucose, Blood 194 mg/dL (70-99); Magnesium, Blood 2.1 mg/dL (1.6-2.4); Phosphorus, Blood 3.5 mg/dL (2.5-4.9); Potassium, Blood 3.8 mmol/L (3.5-5.5); Sodium, Blood 139 mmol/L (136-145)
[2025-05-15 07:47] VITALS: BP 122/67
[2025-05-15 13:32] VITALS: BP 171/80
[2025-05-15 17:24] VITALS: BP 152/76
--- NOTE | 2025-05-15 18:46 | NUR ---
DISCHARGE NOTE PATIENT A/OX4, ABLE TO MAKE NEEDS KNOWN. PLEASANT AND COOPERATIVE WITH CARE. DISCGARGE INSTRUCTIONS DISCUSSED WITH PATIENT AND HIS SPOUSE, GRACY. PLAN TO HAVE DIALYSIS TOMORROW AT 315 AT [facility] AND FOLLOW UP APPOINTMENT WITH SCHEDULED FOR WEDNESDAY. PATIENT AND SPOUSE AGREEABLE TO PLAN HOWVER STATED WILL NEED TO RESCHEDULE APPOINTMENT WITH DR. CHRIS FOR LATER TIME, PHONE NUMBER PROVIDED TO PATIENT. NEW PRESCRIPTIONS FAXED TO [facility], PER PATIENT REQUEST. ALL MEDICATION CHANGES DISCUSSED WITH PATIENT AND SPOUSE AND AGREEABLE TO CHANGES. PATIENT ASSISTED TO HIS MOTORIZED WHEELCHAIR VIA ROSALINDA LIFT WITH [facility] STAFF AND ASSISTED TO FAMILY VEHICLE WITH ALL BELONGINGS IN HAND. NO OTHER CONCERNS.
[2025-05-16 13:50] LABS: HEPATITIS B SURFACE ANTIBODY <3.10 IU/L
== END 2025-05-15 19:02 | disposition home or self-care (01) | DRG 674 ==
LOC: ER 15:37 → MEDS 15:38 → ERHOLD 15:38 → ER 17:49 → MEDS 20:20
PROVIDERS: Internal Medicine; Internal Medicine Nephrology; Student in an Organized Health Care Education/Training Program; ADMIT Family Medicine
PROC: 0JH63XZ Insertion of Tunneled Vascular Access Device into Chest Subcutaneous Tissue and Fascia, Percutaneous Approach (ICD-10-PCS; 2025-05-08)
PROC: 02HV33Z Insertion of Infusion Device into Superior Vena Cava, Percutaneous Approach (ICD-10-PCS; 2025-05-08)
PROC: 5A1D70Z Performance of Urinary Filtration, Intermittent, Less than 6 Hours Per Day (ICD-10-PCS; principal; 2025-05-09)
DX: I12.0 Hypertensive chronic kidney disease with stage 5 chronic kidney disease or end stage renal disease (principal); N17.9 Acute kidney failure, unspecified; N25.81 Secondary hyperparathyroidism of renal origin; N18.5 Chronic kidney disease, stage 5; I25.10 Atherosclerotic heart disease of native coronary artery without angina pectoris; E11.22 Type 2 diabetes mellitus with diabetic chronic kidney disease; Z66 Do not resuscitate; E11.42 Type 2 diabetes mellitus with diabetic polyneuropathy; G89.4 Chronic pain syndrome; E87.70 Fluid overload, unspecified; D63.1 Anemia in chronic kidney disease; R60.0 Localized edema; E78.00 Pure hypercholesterolemia, unspecified; M62.81 Muscle weakness (generalized); E11.621 Type 2 diabetes mellitus with foot ulcer; L97.519 Non-pressure chronic ulcer of other part of right foot with unspecified severity; F17.220 Nicotine dependence, chewing tobacco, uncomplicated; E66.9 Obesity, unspecified; R44.1 Visual hallucinations; E88.09 Other disorders of plasma-protein metabolism, not elsewhere classified; I95.9 Hypotension, unspecified; E83.39 Other disorders of phosphorus metabolism; Z99.3 Dependence on wheelchair; Z86.718 Personal history of other venous thrombosis and embolism; I25.2 Old myocardial infarction; Z85.47 Personal history of malignant neoplasm of testis; Z85.820 Personal history of malignant melanoma of skin; Z90.79 Acquired absence of other genital organ(s); Z88.8 Allergy status to other drugs, medicaments and biological substances; Z99.2 Dependence on renal dialysis; Z68.36 Body mass index [BMI] 36.0-36.9, adult
CPT/HCPCS: 36415; 71045; 76770; 76937; 80048; 80053; 80069; 80074; 81001; 82565; 82947; 83735; 85014; 85018; 85025; 86704; 87077; 87086; 87186; 87340; 93005; 93010; 96374; 96375; 99152; 99285-25; A9270; C1750; C1769; C1894; G0378; J0360; J0881; J1644; J1815; J2250; J3010; J7040; J7050

== ENCOUNTER → 2025-05-30 | Outpatient (CLI) | payer OTHER ==
[~2025-05-30] MED LIST changes: +Calcium Acetat667 MG PO; +FARXIGA5 MG PO; +LEVOTHYROXINE25 MC9 PO; +NEPHRO VITAMIN0.8 MG PO; +SEVEC800 PO
== END | disposition home or self-care (01) ==
LOC: LAB 15:46 → LAB SHORT 15:46
DX: A49.9 Bacterial infection, unspecified (principal); N18.6 End stage renal disease
CPT/HCPCS: 87086

== ENCOUNTER 2025-06-01 12:22 | Emergency (ER) | payer OTHER ==
[~2025-06-01] VITALS: Ht 185.4 cm; Wt 104.8 kg
[2025-06-01 14:08] LABS: BASOPHILS ABSOLUTE AUTO 0.10 K/mm3 (0.00-0.23); BASOPHILS PERCENT AUTO 1 % (0-2); EOSINOPHILS ABSOLUTE AUTO 0.18 K/mm3 (0.00-0.68); EOSINOPHILS PERCENT AUTO 2 % (0-6); Hematocrit 33.6 % (37.0-53.0); Hemoglobin 10.5 g/dL (13.5-17.5); IMMATURE GRAN ABSOLUTE AUTO 0.09 K/mm3 (0.00-0.10); IMMATURE GRAN PERCENT AUTO 1 % (0-1); LYMPHOCYTES ABSOLUTE AUTO 1.27 K/mm3 (0.84-5.20); LYMPHOCYTES PERCENT AUTO 11 % (21-46); MONOCYTES ABSOLUTE AUTO 0.97 K/mm3 (0.16-1.47); MONOCYTES PERCENT AUTO 9 % (4-13); Mean Corpuscular HGB Conc 31.3 g/dL (31.5-36.5); Mean Corpuscular Volume 90 fL (80-100); NEUTROPHILS ABSOLUTE AUTO 8.56 K/mm3 (1.96-9.15); NEUTROPHILS PERCENT AUTO 77 % (41-73); NRBC ABSOLUTE 0.00 K/mm3 (0.00-0.02); NRBC Auto 0.0 /100 WBC (0.0-0.2); Platelet Count 433 K/mm3 (150-400); RDW Coefficient Variation 13.7 % (11.7-14.2); RDW Standard Deviation 44.8 fL (35.1-46.3)
[2025-06-01 14:32] LABS: Alanine Aminotransfer (ALT/SGP 15.0 U/L (12-78); Albumin, Blood 2.5 g/dL (3.4-5.0); Albumin/Globulin Ratio 0.6 (0.8-1.8); Anion Gap 6.0 mmol/L (3-11); Aspartate Aminotrans (AST/SGOT 22.0 U/L (12-37); Bilirubin, Total 0.4 mg/dL (0.1-1.0); Blood Urea Nitrogen 23.0 mg/dL (8-24); CO2, Blood 34.0 mmol/L (21-32); Calcium, Blood 8.3 mg/dL (8.5-10.1); Chloride, Blood 102.0 mmol/L (98-108); Creatinine, Blood 4.05 mg/dL (0.60-1.20); Globulin, Blood 3.9 g/dL (2.2-4.0); Glucose, Blood 142.0 mg/dL (70-99); Potassium, Blood 3.9 mmol/L (3.5-5.5); Sodium, Blood 138.0 mmol/L (136-145); Total Protein, Blood 6.4 g/dL (6.4-8.2)
[2025-06-01 18:00] VITALS: BP 158/84
== END 2025-06-01 18:05 | disposition home or self-care (01) ==
LOC: ER 12:22
PROVIDERS: Emergency Medicine
DX: I12.0 Hypertensive chronic kidney disease with stage 5 chronic kidney disease or end stage renal disease (principal); E11.22 Type 2 diabetes mellitus with diabetic chronic kidney disease; N18.6 End stage renal disease; Z99.2 Dependence on renal dialysis; F17.220 Nicotine dependence, chewing tobacco, uncomplicated; E11.40 Type 2 diabetes mellitus with diabetic neuropathy, unspecified; Z79.899 Other long term (current) drug therapy; I25.2 Old myocardial infarction; Z79.82 Long term (current) use of aspirin; Z79.4 Long term (current) use of insulin
CPT/HCPCS: 36415; 71045; 80053; 83690; 84484; 85025; 93005; 93010; 99285-25

== ENCOUNTER 2025-06-05 17:01 | Emergency (ER) | payer OTHER ==
[~2025-06-05] VITALS: Ht 185.4 cm; Wt 113.4 kg
[2025-06-05 19:49] LABS: BASOPHILS ABSOLUTE AUTO 0.10 K/mm3 (0.00-0.23); BASOPHILS PERCENT AUTO 1 % (0-2); EOSINOPHILS ABSOLUTE AUTO 0.05 K/mm3 (0.00-0.68); EOSINOPHILS PERCENT AUTO 0 % (0-6); Hematocrit 35.9 % (37.0-53.0); Hemoglobin 11.3 g/dL (13.5-17.5); IMMATURE GRAN ABSOLUTE AUTO 0.15 K/mm3 (0.00-0.10); IMMATURE GRAN PERCENT AUTO 1 % (0-1); LYMPHOCYTES ABSOLUTE AUTO 1.72 K/mm3 (0.84-5.20); LYMPHOCYTES PERCENT AUTO 11 % (21-46); MONOCYTES ABSOLUTE AUTO 1.01 K/mm3 (0.16-1.47); MONOCYTES PERCENT AUTO 7 % (4-13); Mean Corpuscular HGB Conc 31.5 g/dL (31.5-36.5); Mean Corpuscular Volume 88 fL (80-100); NEUTROPHILS ABSOLUTE AUTO 12.40 K/mm3 (1.96-9.15); NEUTROPHILS PERCENT AUTO 81 % (41-73); NRBC ABSOLUTE 0.00 K/mm3 (0.00-0.02); NRBC Auto 0.0 /100 WBC (0.0-0.2); Platelet Count 420 K/mm3 (150-400); RDW Coefficient Variation 13.7 % (11.7-14.2); RDW Standard Deviation 44.5 fL (35.1-46.3)
[2025-06-05 20:10] LABS: Alanine Aminotransfer (ALT/SGP 15.0 U/L (12-78); Albumin, Blood 3.0 g/dL (3.4-5.0); Albumin/Globulin Ratio 0.8 (0.8-1.8); Anion Gap 9.0 mmol/L (3-11); Aspartate Aminotrans (AST/SGOT 21.0 U/L (12-37); Bilirubin, Total 0.6 mg/dL (0.1-1.0); Blood Urea Nitrogen 19.0 mg/dL (8-24); CO2, Blood 31.0 mmol/L (21-32); Calcium, Blood 8.9 mg/dL (8.5-10.1); Chloride, Blood 98.0 mmol/L (98-108); Creatinine, Blood 3.51 mg/dL (0.60-1.20); Globulin, Blood 4.0 g/dL (2.2-4.0); Glucose, Blood 114.0 mg/dL (70-99); Potassium, Blood 3.5 mmol/L (3.5-5.5); Sodium, Blood 134.0 mmol/L (136-145); Total Protein, Blood 7.0 g/dL (6.4-8.2)
[2025-06-05 21:30] VITALS: BP 149/87
== END 2025-06-05 22:00 | disposition home or self-care (01) ==
LOC: ER 17:01
PROVIDERS: Student in an Organized Health Care Education/Training Program
DX: I95.89 Other hypotension (principal); I12.0 Hypertensive chronic kidney disease with stage 5 chronic kidney disease or end stage renal disease; N18.6 End stage renal disease; E11.22 Type 2 diabetes mellitus with diabetic chronic kidney disease; E11.40 Type 2 diabetes mellitus with diabetic neuropathy, unspecified; I25.2 Old myocardial infarction; Z88.8 Allergy status to other drugs, medicaments and biological substances; Z79.4 Long term (current) use of insulin; Z79.82 Long term (current) use of aspirin; Z79.899 Other long term (current) drug therapy
CPT/HCPCS: 36415; 71046; 80053; 85025; 93005; 93010; 99285-25

== ENCOUNTER → 2025-06-08 | Outpatient (CLI) | payer OTHER ==
[2025-06-08 16:52] LABS: Hematocrit 34.2 % (37.0-53.0); Hemoglobin 10.9 g/dL (13.5-17.5)
[2025-06-08 17:32] LABS: Alanine Aminotransfer (ALT/SGP 18.0 U/L (12-78); Albumin, Blood 2.7 g/dL (3.4-5.0); Albumin/Globulin Ratio 0.7 (0.8-1.8); Anion Gap 8.0 mmol/L (3-11); Aspartate Aminotrans (AST/SGOT 22.0 U/L (12-37); Bilirubin, Total 0.3 mg/dL (0.1-1.0); Blood Urea Nitrogen 30.0 mg/dL (8-24); CO2, Blood 35.0 mmol/L (21-32); Calcium, Blood 8.7 mg/dL (8.5-10.1); Chloride, Blood 99.0 mmol/L (98-108); Creatinine, Blood 4.38 mg/dL (0.60-1.20); Globulin, Blood 3.8 g/dL (2.2-4.0); Glucose, Blood 127.0 mg/dL (70-99); Potassium, Blood 3.2 mmol/L (3.5-5.5); Sodium, Blood 139.0 mmol/L (136-145); Total Protein, Blood 6.5 g/dL (6.4-8.2)
[2025-06-20 09:57] LABS: Prostate Specific Antigen 1.130 ng/mL (0.000-4.000)
== END ==
LOC: LAB 16:22 → LAB SHORT 16:22
PROVIDERS: Internal Medicine Endocrinology, Diabetes & Metabolism
DX: E11.22 Type 2 diabetes mellitus with diabetic chronic kidney disease (principal); N18.31 Chronic kidney disease, stage 3a; E11.65 Type 2 diabetes mellitus with hyperglycemia; E29.1 Testicular hypofunction; Z12.5 Encounter for screening for malignant neoplasm of prostate; Z79.4 Long term (current) use of insulin
CPT/HCPCS: 80053; 83036; 84403; 85014; 85018; G0103

== ENCOUNTER 2025-06-11 20:38 | Emergency (ER) | payer OTHER ==
[~2025-06-11] VITALS: Ht 185.4 cm; Wt 109.0 kg
[2025-06-11 21:23] LABS: BASOPHILS ABSOLUTE AUTO 0.10 K/mm3 (0.00-0.23); BASOPHILS PERCENT AUTO 1 % (0-2); EOSINOPHILS ABSOLUTE AUTO 0.45 K/mm3 (0.00-0.68); EOSINOPHILS PERCENT AUTO 4 % (0-6); Hematocrit 39.2 % (37.0-53.0); Hemoglobin 12.5 g/dL (13.5-17.5); IMMATURE GRAN ABSOLUTE AUTO 0.11 K/mm3 (0.00-0.10); IMMATURE GRAN PERCENT AUTO 1 % (0-1); LYMPHOCYTES ABSOLUTE AUTO 3.11 K/mm3 (0.84-5.20); LYMPHOCYTES PERCENT AUTO 24 % (21-46); MONOCYTES ABSOLUTE AUTO 1.34 K/mm3 (0.16-1.47); MONOCYTES PERCENT AUTO 10 % (4-13); Mean Corpuscular HGB Conc 31.9 g/dL (31.5-36.5); Mean Corpuscular Volume 89 fL (80-100); NEUTROPHILS ABSOLUTE AUTO 7.78 K/mm3 (1.96-9.15); NEUTROPHILS PERCENT AUTO 60 % (41-73); NRBC ABSOLUTE 0.00 K/mm3 (0.00-0.02); NRBC Auto 0.0 /100 WBC (0.0-0.2); Platelet Count 370 K/mm3 (150-400); RDW Coefficient Variation 14.1 % (11.7-14.2); RDW Standard Deviation 45.2 fL (35.1-46.3)
[2025-06-11 21:44] LABS: Alanine Aminotransfer (ALT/SGP 21.0 U/L (12-78); Albumin, Blood 3.1 g/dL (3.4-5.0); Albumin/Globulin Ratio 0.7 (0.8-1.8); Anion Gap 6.0 mmol/L (3-11); Aspartate Aminotrans (AST/SGOT 27.0 U/L (12-37); Bilirubin, Total 0.7 mg/dL (0.1-1.0); Blood Urea Nitrogen 15.0 mg/dL (8-24); CO2, Blood 34.0 mmol/L (21-32); Calcium, Blood 8.8 mg/dL (8.5-10.1); Chloride, Blood 97.0 mmol/L (98-108); Creatinine, Blood 2.27 mg/dL (0.60-1.20); Globulin, Blood 4.4 g/dL (2.2-4.0); Glucose, Blood 118.0 mg/dL (70-99); Potassium, Blood 3.1 mmol/L (3.5-5.5); Sodium, Blood 134.0 mmol/L (136-145); Total Protein, Blood 7.5 g/dL (6.4-8.2)
[2025-06-11 21:57] VITALS: BP 178/69
== END 2025-06-11 22:39 | disposition home or self-care (01) ==
LOC: ER 20:38
PROVIDERS: Student in an Organized Health Care Education/Training Program
DX: R55 Syncope and collapse (principal); I95.9 Hypotension, unspecified; R11.0 Nausea; I12.0 Hypertensive chronic kidney disease with stage 5 chronic kidney disease or end stage renal disease; E11.22 Type 2 diabetes mellitus with diabetic chronic kidney disease; N18.6 End stage renal disease; I25.2 Old myocardial infarction; F17.220 Nicotine dependence, chewing tobacco, uncomplicated; Z99.2 Dependence on renal dialysis; Z79.890 Hormone replacement therapy; Z79.82 Long term (current) use of aspirin; Z79.4 Long term (current) use of insulin; Z79.899 Other long term (current) drug therapy
CPT/HCPCS: 36415; 80053; 82947; 85025; 93005; 93010; 99285-25

== ENCOUNTER → 2025-08-14 | Outpatient (CLI) | payer OTHER ==
[~2025-08-14] MED LIST changes: +ADALAT CC60 M1 PO; +AZMIRO200 MG/1 M IM; +BISA5EC PO; +DEPO-TESTO200 MG/1 M IM; +DOCU100 PO; +FURO80 PO; +HUMALOG KW100 UNIT/1; +HYDRA25 PO; +LEVSOD25 PO; +LIDO5TO TOP; +LORA10ER PO; +LOSA25 PO; +METO25ER PO; +MIDO5 PO; +MIRT15 PO; +NITR6.5ER PO; +NOVOLOG100 UNIT/2; +OMEP20ER PO; +Percocet 5-3251 EACH PO; +Rena-Vite Tabl0.8 MG PO; +Seroquel Xr50 MG PO
[2025-08-14 12:08] LABS: Hematocrit 37.4 % (37.0-53.0); Hemoglobin 12.0 g/dL (13.5-17.5); Mean Corpuscular HGB Conc 32.1 g/dL (31.5-36.5); Mean Corpuscular Volume 87 fL (80-100); NRBC ABSOLUTE 0.00 K/mm3 (0.00-0.02); NRBC Auto 0.0 /100 WBC (0.0-0.2); Platelet Count 297 K/mm3 (150-400); RDW Coefficient Variation 15.3 % (11.7-14.2); RDW Standard Deviation 48.5 fL (35.1-46.3)
[2025-08-14 12:21] LABS: Prothrombin Time Results 14.8 Sec (9.7-11.5)
[2025-08-14 12:54] LABS: BASOPHILS ABSOLUTE MAN 0.00 K/mm3 (0.00-0.23); BASOPHILS PERCENT MAN 0 % (0-2); EOSINOPHILS ABSOLUTE MAN 0.40 K/mm3 (0.00-0.68); EOSINOPHILS PERCENT MAN 5 % (0-6); LYMPHOCYTES % ATYPICAL MANUAL 1 % (0-0); LYMPHOCYTES ABSOLUTE MAN 2.36 K/mm3 (0.84-5.20); LYMPHOCYTES PERCENT MAN 28 % (21-46); MONOCYTES ABSOLUTE MAN 0.81 K/mm3 (0.16-1.47); MONOCYTES PERCENT MAN 10 % (4-13); NEUTROPHILS ABSOLUTE MAN 4.56 K/mm3 (1.96-9.15); SEG NEUTROPHILS PERCENT MAN 56 % (41-73)
[2025-08-14 14:32] LABS: Anion Gap 12.0 mmol/L (3-11); Blood Urea Nitrogen 69.0 mg/dL (8-24); CO2, Blood 28.0 mmol/L (21-32); Calcium, Blood 8.4 mg/dL (8.5-10.1); Chloride, Blood 103.0 mmol/L (98-108); Creatinine, Blood 5.3 mg/dL (0.60-1.20); Glucose, Blood 125.0 mg/dL (70-99); Potassium, Blood 4.2 mmol/L (3.5-5.5); Sodium, Blood 139.0 mmol/L (136-145)
== END ==
LOC: LAB SHORT 11:58 → LAB 11:58
PROVIDERS: Internal Medicine Cardiovascular Disease
DX: R07.9 Chest pain, unspecified (principal)
CPT/HCPCS: 80048; 85007; 85027; 85610

== ENCOUNTER 2025-08-15 09:15 | Inpatient (IN) | payer OTHER ==
[~2025-08-15] VITALS: Ht 185.4 cm; Wt 115.3 kg
[2025-08-15] VITALS (25 sets, daily range): BP systolic 110–186; BP diastolic 59–135
[~2025-08-15 09:15] MED LIST changes: -ADALAT CC60 M1 PO; -BISA5EC PO; -DEPO-TESTO200 MG/1 M IM; -DOCU100 PO; -FURO80 PO; -HUMALOG KW100 UNIT/1; -HYDRA25 PO; -LEVSOD25 PO; -LIDO5TO TOP; -LORA10ER PO; -LOSA25 PO; -METO25ER PO; -MIRT15 PO; -NOVOLOG100 UNIT/2; -OMEP20ER PO; -Percocet 5-3251 EACH PO; -Rena-Vite Tabl0.8 MG PO; -Seroquel Xr50 MG PO
[2025-08-15] MEDS ORDERED: NS 1,000 ML IV ONE ×2 (09:31→09:59)
[2025-08-15] MEDS ORDERED: NS 250 ML IV ONE (09:31)
[2025-08-15] MEDS ORDERED: Heparin Sodium 1000 Units/ML 10ML MDV ONE ×4 (09:31→13:19)
[2025-08-15] MEDS ORDERED: Verapamil HCL 2.5 MG/ML 2ML Injection ONE (09:31)
[2025-08-15] MEDS ORDERED: Nitroglycerin 2 MG/20 ML BTL ONE (09:32)
[2025-08-15] MEDS ORDERED: FentaNYL Citrate 50 MCG/ML 2 ML Injection ONE ×4 (09:59→14:16)
[2025-08-15] MEDS ORDERED: Midazolam HCl 1MG / ML 2ML Vial ONE ×5 (09:59→14:16)
[2025-08-15] MEDS ORDERED: HydrALAZINE HCl 20 MG / ML 1ML Vial ONE (10:46)
[2025-08-15] MEDS ORDERED: NS 500 ML IV ONE ×2 (12:28→13:19)
--- NOTE | 2025-08-15 13:50 | NUR ---
Pt R AC IV infiltrated during case. Left femoral vein acessed by provider and used for medication. Suspecting 175mg fentanyl, 10,000u Heparin, 10mg Hydralizine and 5mg of versed were not effective through infiltrated IV. Pt was alert and oriented after new access site and aditional medication was administered.
[2025-08-15] MEDS ORDERED: BISA5EC PO (14:32)
[2025-08-15] MEDS ORDERED: Calcium Acetat667 MG PO ×2 (14:32→16:05)
[2025-08-15] MEDS ORDERED: CLOP75 PO (14:33)
[2025-08-15] MEDS ORDERED: CONSTULOSE10 GM/155 PO (14:33)
[2025-08-15] MEDS ORDERED: Rena-Vite Tabl0.8 MG PO ×2 (14:34→16:05)
[2025-08-15] MEDS ORDERED: DOCU100 PO (14:34)
[2025-08-15] MEDS ORDERED: FURO80 PO (14:35)
[2025-08-15] MEDS ORDERED: HUMALOG KW100 UNIT/1 (14:36)
[2025-08-15] MEDS ORDERED: INSULANI SC (14:37)
[2025-08-15] MEDS ORDERED: HYDRA25 PO (14:37)
[2025-08-15] MEDS ORDERED: LOSA25 PO (14:38)
[2025-08-15] MEDS ORDERED: LIDO5TO TOP (14:38)
[2025-08-15] MEDS ORDERED: METO25ER PO (14:38)
[2025-08-15] MEDS ORDERED: OMEP20ER PO (14:39)
[2025-08-15] MEDS ORDERED: MIRT15 PO (14:39)
[2025-08-15] MEDS ORDERED: Percocet 5-3251 EACH PO (14:40)
[2025-08-15] MEDS ORDERED: NS 250 ML IV PRN (15:35)
[2025-08-15] MEDS ORDERED: Aspir 8181 MG PO (15:48)
[2025-08-15] MEDS ORDERED: HYDMOR4 PO ×2 (15:49)
[2025-08-15] MEDS ORDERED: METO100ER PO (15:50)
[2025-08-15] MEDS ORDERED: LEVSOD25 PO (15:50)
[2025-08-15] MEDS ORDERED: MIDO5 PO ×2 (15:51)
[2025-08-15] MEDS ORDERED: ADALAT CC60 M1 PO ×2 (15:52)
[2025-08-15] MEDS ORDERED: NITR6.5ER PO ×2 (15:52)
[2025-08-15] MEDS ORDERED: PREG25 PO (15:53)
[2025-08-15] MEDS ORDERED: Seroquel Xr50 MG PO ×2 (15:53)
[2025-08-15] MEDS ORDERED: DEPO-TESTO200 MG/1 M IM (15:55)
[2025-08-15] MEDS ORDERED: NOVOLOG100 UNIT/2 ×2 (16:04)
[2025-08-15] MEDS ORDERED: LORA10ER PO ×2 (16:06)
--- NOTE | 2025-08-15 17:17 | NUR ---
ASSUMPTION OF CARE/SUMMARY PT ARRIVED TO ICU 8 AT 1515. PT HAS R RADIAL ACCESS WITH 9ML OF AIR IN TR BAND. SMALL AMOUNT OF OOZING, SURROUNDING TISSUE SOFT, NONTENDER. CAP REFILL <3 SEC. ATTEMPTED R GROIN ACCESS SITE. AREA CLEAN, BOARDING MACHINE OPERATOR, SURROUNDING TISSUE SOFT. L GROIN ACCESS SITE WITH ANGIOSEAL AND VENOUS ACCESS INFUSING NS. SMALL AMOUNT OF OOZING. AREA IS SOFT, TENDER AND PT REPORTS 8/10 PAIN. MEDICATED PER EMAR WITH IMPROVEMENT TO 2/10. STRONG DISTAL PULSES. 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 EDUCATION PROVIDED REGARDING LIMITED MOBILITY AND ACTIVITY OF R WRIST AND LLE, PT VERBALIZED UNDERSTANDING. DENIES CP. SINUS WITH RBBB ON MONITOR WITH RATE IN 80S-90S. SBP 150S-160S. PT HAD A RAC PERIPHERAL INFILTRATE IN LABVIEW PROGRAMMER. SWELLING NOTED TO UPPER ARM, AREA SOFT AND TENDER. NO DISCOLORATION, NOT HOT TO TOUCH. PT TOLERATING PO INTAKE WELL. HEART CENTER STAFF BROUGHT BELONGINGS WITH PT'S INCLUDING MOTORIZED WHEELCHAIR WHICH IS IN THE ROOM. PT IN REVERSE TRENDELENBERG. CALL LIGHT WITHIN REACH.
[2025-08-15] MEDS ORDERED: Labetalol HCL 5 MG/ML 4ML Injection (Single Dose) IV ONE (18:50)
[2025-08-15] MEDS ORDERED: NIFEdipine 60 MG TabCR PO ONE (18:50)
[2025-08-15] MEDS ORDERED: HydrALAZINE HCl 20 MG / ML 1ML Vial IV PRN (20:45)
[2025-08-15] MEDS ORDERED: Ondansetron HCl 2 MG / ML 2ML Vial IV PRN (22:10)
[2025-08-16] VITALS (14 sets, daily range): BP systolic 89–140; BP diastolic 59–75
--- NOTE | 2025-08-16 06:11 | NUR ---
SHIFT SUMMARY: NO ACUTE CHANGES OVERNIGHT. PT REMAINS A&O X 4, PLEASANT AND COOPERATIVE WITH CARE. PT ON RA, LUNGS CLEAR T/O AND DENIES SOB. SINUS ON MONITOR WITH RBBB, RATE IN THE 80'S AND SBP 130'S; AT START OF SHIFT PT HTN WITH SBP 180'S, TREATED WITH LABETALOL, HYDRALAZINE AND PO PROCARDIA WITH GOOD EFFECT. SPOKE WITH DR. MAYER AT START OF SHIFT ABOUT PT'S CONCERN FOR DRIVING HOME IN THE DARK SO DECISION TO LET PT STAY THE NIGHT. PT HAD SOME NAUSEA THIS SHIFT THAT WAS TREATED WITH ZOFRAN WITH GOOD EFFECT. PT ON RENAL DIET AND TOLERATES PO INTAKE. PT HERE FOR ELECTIVE L. HEART CATH WITH A STENT PLACED TO LAD. PT HAS ATTEMPTED ACCESS SITE TO R. FEM THAT IS DIRECTOR DATA PROCESSING, SOFT AND NON-TENDER. R. RADIAL ACCESS SITE THAT HAS CLEAR TEGADERM IN PLACE, TR-BAND REMOVED AT 2300. L. FEMORAL ACCESS SITE WITH ANGIO SEAL. LEFT FEMORAL CENTRAL LINE IN PLACE WITH CHG DRESSING; NS TKO INFUSING @ 10 MLS/HR. PER. DR MAYER PT IS OKAY TO DISCHARGE HOME THIS MORNING POST CENTRAL LINE REMOVAL. PT SLEEPING NOW, AT BEDSIDE AND UPDATED ON CARE PLAN.
[2025-08-16] MEDS ORDERED: CLOP75 PO (09:27)
--- NOTE | 2025-08-16 10:33 | NUR ---
Assumed care of pt at 0700. Bedside report received from Patricia RAMIREZ. Pt A&O x 4. Answers questions, follows commands, verbalizes needs. Pleasant and cooperative with care. Spouse at bedside. Central line to L groin removed this AM and tegaderm CHG placed over area. R radial, R groin, and left groin arterial and venous puncture sites stable, no bleeding, bruising, drainage or hematoma. Pt ate breakfast and tolerated well. Discharge permitted by senior animal trainer, Dr Kristina Mora. Prior to discharge, discussed plavix. Pt to be plavix loaded since he received brilinta yesterday- okay to receive plavix load 1 hr after central line removal. Procardia held per provider due to VS out of parameters, also pt will be receiving hemodialysis later today. Pt's spouse states plan to recheck BP when they get home. New medication order faxed to [facility] in [place]. Pt and spouse departed at 0959. Pt assisted to dress and lifted into electric wheelchair using his own sling.
== END 2025-08-16 10:19 | disposition home or self-care (01) | DRG 321 ==
LOC: MHTC 09:15 → ICUE 15:52
PROVIDERS: ADMIT Internal Medicine Cardiovascular Disease
PROC: 027034Z Dilation of Coronary Artery, One Artery with Drug-eluting Intraluminal Device, Percutaneous Approach (ICD-10-PCS; principal; 2025-08-15)
PROC: B2111ZZ Fluoroscopy of Multiple Coronary Arteries using Low Osmolar Contrast (ICD-10-PCS; 2025-08-15)
PROC: 4A023N7 Measurement of Cardiac Sampling and Pressure, Left Heart, Percutaneous Approach (ICD-10-PCS; 2025-08-15)
PROC: B41F1ZZ Fluoroscopy of Right Lower Extremity Arteries using Low Osmolar Contrast (ICD-10-PCS; 2025-08-15)
DX: I25.10 Atherosclerotic heart disease of native coronary artery without angina pectoris (principal); N18.6 End stage renal disease; I12.0 Hypertensive chronic kidney disease with stage 5 chronic kidney disease or end stage renal disease; I25.2 Old myocardial infarction; E11.22 Type 2 diabetes mellitus with diabetic chronic kidney disease; E78.5 Hyperlipidemia, unspecified; E66.01 Morbid (severe) obesity due to excess calories; Z88.8 Allergy status to other drugs, medicaments and biological substances; Z79.82 Long term (current) use of aspirin; Z79.899 Other long term (current) drug therapy
CPT/HCPCS: 76937; 85347; 92978; 93005; 93010; 93454; 93571; 99152; 99153; A9270; C1725; C1753; C1760; C1769; C1874; C1887; C1894; C9600; J0360; J1644; J2250; J2405; J3010; J3246; J7030; J7040; J7050; Q9967

== ENCOUNTER → 2025-09-11 | Outpatient (CLI) | payer OTHER ==
[~2025-09-11] MED LIST changes: +ADALAT CC60 M1 PO; +BISA5EC PO; +DEPO-TESTO200 MG/1 M IM; +DOCU100 PO; +FURO80 PO; +HUMALOG KW100 UNIT/1; +HYDRA25 PO; +LEVSOD25 PO; +LIDO5TO TOP; +LORA10ER PO; +LOSA25 PO; +METO25ER PO; +MIRT15 PO; +NOVOLOG100 UNIT/2; +OMEP20ER PO; +Percocet 5-3251 EACH PO; +Rena-Vite Tabl0.8 MG PO; +Seroquel Xr50 MG PO
[2025-09-11 11:51] LABS: Source, Urine Clean Catch
[2025-09-11 13:26] LABS: Bilirubin, Urine Neg (Neg); Color, Urine Yellow (P-Yellow); Glucose Qualitative, Urine 2+ (Neg); Ketones, Urine Neg (Neg); Leukocyte Esterase, Urine Neg (Neg); Protein, Urine 4+ (Neg); Specific Gravity, Urine 1.010 (1.003-1.022); Urobilinogen, Urine NORM (Normal)
== END ==
LOC: LAB SHORT 11:43 → LAB 11:43
PROVIDERS: Internal Medicine Nephrology
DX: N18.6 End stage renal disease (principal); A49.9 Bacterial infection, unspecified
CPT/HCPCS: 81001

== ENCOUNTER → 2025-09-17 | Outpatient (CLI) | payer OTHER | END | disposition home or self-care (01) | LOC: LAB SHORT 11:45 → LAB 11:45 → LAB SHORT 09-18 11:45 | DX: N18.6 End stage renal disease (principal) | CPT/HCPCS: 87086 ==

== ENCOUNTER → 2025-10-09 | Outpatient (CLI) | payer OTHER ==
[2025-10-09 12:43] LABS: BASOPHILS ABSOLUTE AUTO 0.09 K/mm3 (0.00-0.23); BASOPHILS PERCENT AUTO 1 % (0-2); EOSINOPHILS ABSOLUTE AUTO 0.47 K/mm3 (0.00-0.68); EOSINOPHILS PERCENT AUTO 5 % (0-6); Hematocrit 30.2 % (37.0-53.0); Hemoglobin 9.8 g/dL (13.5-17.5); IMMATURE GRAN ABSOLUTE AUTO 0.06 K/mm3 (0.00-0.10); IMMATURE GRAN PERCENT AUTO 1 % (0-1); LYMPHOCYTES ABSOLUTE AUTO 2.15 K/mm3 (0.84-5.20); LYMPHOCYTES PERCENT AUTO 22 % (21-46); MONOCYTES ABSOLUTE AUTO 0.93 K/mm3 (0.16-1.47); MONOCYTES PERCENT AUTO 9 % (4-13); Mean Corpuscular HGB Conc 32.5 g/dL (31.5-36.5); Mean Corpuscular Volume 88 fL (80-100); NEUTROPHILS ABSOLUTE AUTO 6.30 K/mm3 (1.96-9.15); NEUTROPHILS PERCENT AUTO 63 % (41-73); NRBC ABSOLUTE 0.00 K/mm3 (0.00-0.02); NRBC Auto 0.0 /100 WBC (0.0-0.2); Platelet Count 449 K/mm3 (150-400); RDW Coefficient Variation 14.8 % (11.7-14.2); RDW Standard Deviation 47.5 fL (35.1-46.3)
[2025-10-09 13:33] LABS: Alanine Aminotransfer (ALT/SGP 21 U/L (12-78); Albumin, Blood 2.9 g/dL (3.4-5.0); Albumin/Globulin Ratio 0.8 (0.8-1.8); Anion Gap 11 mmol/L (3-11); Aspartate Aminotrans (AST/SGOT 16 U/L (12-37); Bilirubin, Total 0.4 mg/dL (0.1-1.0); Blood Urea Nitrogen 46 mg/dL (8-24); CHOL/HDL RATIO 6.2; CO2, Blood 31 mmol/L (21-32); Calcium, Blood 8.4 mg/dL (8.5-10.1); Chloride, Blood 99 mmol/L (98-108); Cholesterol 197 mg/dL (50-200); Creatinine, Blood 5.05 mg/dL (0.60-1.20); Globulin, Blood 3.5 g/dL (2.2-4.0); Glucose, Blood 159 mg/dL (70-99); HDL Cholesterol 32 mg/dL (>39); LDL/HDL RATIO 4.5; Low Density Lipoprotein Chol 143 mg/dL (0-110); Potassium, Blood 3.9 mmol/L (3.5-5.5); Sodium, Blood 137 mmol/L (136-145); Thyroid Stimulating Hormone 4.120 uIU/mL (0.360-4.800); Total Protein, Blood 6.4 g/dL (6.4-8.2); Triglycerides 111 mg/dL (30-160); Very Low Density Lipoprot Chol 22 mg/dL (6-32)
[2025-10-11 11:12] LABS: HIV 1,2 COMBO ANTIGEN/ANTIBODY Negative (Negative)
[2025-10-11 11:20] LABS: HEPATITIS C AB CIA INTERP Negative (Negative); HEPATITIS C ANTIBODY CIA INDEX 0.06 IV
== END ==
LOC: LAB 12:20 → LAB SHORT 12:20
DX: Z11.59 Encounter for screening for other viral diseases (principal); Z13.220 Encounter for screening for lipoid disorders; Z12.11 Encounter for screening for malignant neoplasm of colon; C62.90 Malignant neoplasm of unspecified testis, unspecified whether descended or undescended; E11.42 Type 2 diabetes mellitus with diabetic polyneuropathy; E11.22 Type 2 diabetes mellitus with diabetic chronic kidney disease; I12.9 Hypertensive chronic kidney disease with stage 1 through stage 4 chronic kidney disease, or unspecified chronic kidney disease; N18.4 Chronic kidney disease, stage 4 (severe); E03.9 Hypothyroidism, unspecified
CPT/HCPCS: 80053; 80061; 83036; 84439; 84443; 85025; 86803; 87389